=== PATIENT | female | born 1990 | race Two or more races ===

== ENCOUNTER 2016-11-03 22:16 | Emergency (ER) | payer OTHER ==
[2016-11-03 22:21] VITALS: BP 118/64; PULSE 98; TEMP 98; BMI 28.1
--- NOTE | 2016-11-03 23:16 | PDOC ---
History of Present Illness - History of Present Illness Initial Comments: 11/03/16 23:52 The patient is a 26 year old female, with a significant past medical history of scoliosis, who presents to the emergency department with frontal headache and cough for 4 days. She states her headache is worse when she wakes up in the morning. She states the headache is starts at the front of her head and radiates contralaterally. She reports using ibuprofen for her headaches, the last dose was taken about 2 hours ago. She also reports a nonproductive cough which aggravates her headache. She denies chest pain, shortness of breath, headache and dizziness. She denies fever, chills, nausea, vomit, diarrhea and constipation. She denies dysuria, frequency, urgency and hematuria. Allergies: NKDA <Annie Mcgovern - Last Filed: 11/03/16 23:52> <Gretchen Scott - Last Filed: 11/05/16 01:43> - General Chief Complaint: Headache Stated Complaint: HEADACHES Time Seen by Provider: 11/03/16 23:16 Past History <Annie Mcgovern - Last Filed: 11/03/16 23:52> - Past Medical History Asthma: Yes Cancer: No Cardiac Disorders: No Diabetes: No HTN: No Seizures: No Thyroid Disease: No - Immunization History Immunization Up to Date: Yes - Psycho/Social/Smoking Cessation Hx Anxiety: No Suicidal Ideation: No Smoking History: Current every day smoker Have you smoked in the past 12 months: Yes Number of Cigarettes Smoked Daily: 20 Information on smoking cessation initiated: No 'Breaking Loose' booklet given: 08/13/16 Hx Alcohol Use: No Drug/Substance Use Hx: No Substance Use Type: None Hx Substance Use Treatment: No <Gretchen Scott - Last Filed: 11/05/16 01:43> - Past Medical History Allergies/Adverse Reactions: Allergies Allergy/AdvReac Type Severity Reaction Status Date / Time No Known Drug Allergies Allergy Verified 11/03/16 22:20 Review of Systems - Review of Systems Able to Perform ROS?: Yes Comments:: 11/03/16 23:53 CONSTITUTIONAL: Absent: fever, chills, diaphoresis, generalized weakness, malaise, loss of appetite HEENT: Absent: rhinorrhea, nasal congestion, throat pain, throat swelling, difficulty swallowing, mouth swelling, ear pain, eye pain, visual Changes CARDIOVASCULAR: Absent: chest pain, syncope, palpitations, irregular heart rate, lightheadedness , peripheral edema RESPIRATORY: (+) cough, Absent: shortness of breath, dyspnea with exertion, orthopnea, wheezing, stridor, hemoptysis GASTROINTESTINAL: Absent: abdominal pain, abdominal distension, nausea, vomiting, diarrhea, constipation, melena, hematochezia GENITOURINARY: Absent: dysuria, frequency, urgency, hesitancy, hematuria, flank pain, genital pain MUSCULOSKELETAL: Absent: myalgia, arthralgia, joint swelling SKIN: Absent: rash, itching, pallor HEMATOLOGIC/IMMUNOLOGIC: Absent: easy bleeding, easy bruising, lymphadenopathy, frequent infections ENDOCRINE: Absent: unexplained weight gain, unexplained weight loss, heat intolerance, cold intolerance NEUROLOGIC: (+) headache, Absent: focal weakness or paresthesias, dizziness, unsteady gait , seizure, mental status changes, bladder or bowel incontinence PSYCHIATRIC: Absent: anxiety, depression, suicidal or homicidal ideation, hallucinations. <Annie Mcgovern - Last Filed: 11/03/16 23:52> *Physical Exam - Vital Signs Last Vital Signs Temp Pulse Resp BP Pulse Ox 98.0 F 98 H 18 118/64 98 11/03/16 22:18 11/03/16 22:18 11/03/16 22:18 11/03/16 22:18 11/03/16 22:18 - Physical Exam Comments: 11/03/16 23:53 GENERAL: Well developed, well nourished. Awake and alert. No acute distress. HEENT: Normocephalic, atraumatic. PERRLA, EOMI. No conjunctival pallor. Sclera are non- icteric. Moist mucous membranes. Oropharynx is clear. NECK: Supple. Full ROM. No JVD. Carotid pulses 2+ and symmetric, without bruits. No thyromegaly. No lymphadenopathy. CARDIOVASCULAR: Regular rate and rhythm. No murmurs, rubs, or gallops. Distal pulses are 2+ and symmetric. PULMONARY: No evidence of respiratory distress. Lungs clear to auscultation bilaterally. No wheezing, rales or rhonchi. ABDOMINAL: Soft. Non-tender. Non-distended. No rebound or guarding. No organomegaly. Normoactive bowel sounds. MUSCULOSKELETAL Normal range of motion at all joints. No bony deformities or tenderness. No CVA tenderness. EXTREMITIES: No cyanosis. No clubbing. No edema. No calf tenderness. SKIN: Warm and dry. Normal capillary refill. No rashes. No jaundice. NEUROLOGICAL: Alert, awake, appropriate. Cranial nerves 2-12 intact. Normoreflexic in the upper and lower extremities. Normal speech. Toes are down-going bilaterally. Gait is normal without ataxia. PSYCHIATRIC: Cooperative. Good eye contact. Appropriate mood and affect. <Annie Mcgovern - Last Filed: 11/03/16 23:52> - Vital Signs Last Vital Signs Temp Pulse Resp BP Pulse Ox 98.0 F 98 H 18 118/64 98 11/03/16 22:18 11/03/16 22:18 11/03/16 22:18 11/03/16 22:18 11/03/16 22:18 <Gretchen Scott - Last Filed: 11/05/16 01:43> ED Treatment Course - LABORATORY CBC & Chemistry Diagram: 11/04/16 00:13 11/04/16 00:13 <Gretchen Scott - Last Filed: 11/05/16 01:43> Medical Decision Making - Medical Decision Making 11/05/16 01:40 26 yo female p/w 4 day headache -she does not have a h/o migraines. Denies any fever,chills,nausea,vomiting, diplopia ,neck pain -she had a normal neuro exam with no focal deficits -pt received IFVfluids,toradol and steroids and her symptoms resolved and she requested to be discharged <Gretchen Scott - Last Filed: 11/05/16 01:43> *DC/Admit/Observation/Transfer - Attestations Scribe Attestion: 11/03/16 23:54 Documentation prepared by Annie Mcgovern, acting as medical office technologist for Gretchen Scott MD <Annie Mcgovern - Last Filed: 11/03/16 23:52> <Gretchen Scott - Last Filed: 11/05/16 01:43> Diagnosis at time of Disposition: Headache Qualifiers: Headache type: tension-type Headache chronicity pattern: unspecified pattern Intractability: not intractable Qualified Code(s): G44.209 - Tension-type headache, unspecified, not intractable - Discharge Dispostion Disposition: HOME Condition at time of disposition: Stable - Referrals Referrals: Deirdre Head MD [Primary Care Provider] - Kristen Rivas MD [Staff Physician] - - Patient Instructions Printed Discharge Instructions: DI for Headache Additional Instructions: -please take motrin or tylenol for headaches -if your headaches continue,please see a neurologist
[2016-11-03] MEDS ORDERED: METOCLOPRAMIDE HCL INJECTION 10 MG/2 ML VIAL IVPB ONE (23:19)
[2016-11-03] MEDS ORDERED: DEXAMETHASONE SOD PHOSPHATE 10 MG/1 ML VIAL IVPUSH ONE (23:27)
[2016-11-03] MEDS ORDERED: SODIUM CHLORIDE 1,000 ML IV STA (23:28)
[2016-11-03] MEDS ORDERED: KETOROLAC TROMETHAMINE 30 MG/1 ML VIAL IVPUSH ONE (23:33)
[2016-11-04 00:20] LABS: BASOPHIL 0.5 % (0-2.0); EOSINOPHIL 3.3 % (0-4.5); MCH 28.7 pg (25.7-33.7); MCHC 33.4 g/dl (32.0-36.0); MEAN CELL VOLUME 86.1 fl (80-96); MEAN PLT VOLUME 8.2 fl (7.5-11.1); PLATELET COUNT 217 K/MM3 (134-434); RDW 14.5 % (11.6-15.6); WHITE BLOOD COUNT 5.8 K/mm3 (4.0-10.0)
[2016-11-04] MEDS ORDERED: KETOROLAC TROMETHAMINE 30 MG/1 ML VIAL ONE (00:21)
[2016-11-04] MEDS ORDERED: DEXAMETHASONE SOD PHOSPHATE 10 MG/1 ML VIAL ONE (00:21)
[2016-11-04 00:48] LABS: ALBUMIN 3.5 g/dl (3.4-5.0); ALK PHOS 70 U/L (45-117); ANION GAP 9 (8-16); BILIRUBIN,TOTAL 0.3 mg/dL (0.2-1.0); CALCIUM 8.7 mg/dL (8.5-10.1); CO2 27 mmol/L (21-32); CREATININE 0.8 mg/dL (0.55-1.02); GLUCOSE,RANDOM 94 mg/dL (74-106); SGOT/AST 20 U/L (15-37); SGPT/ALT 32 U/L (12-78); TOT PROT 6.7 g/dl (6.4-8.2)
[2016-11-04] MEDS ORDERED: MAG HYDROX/AL HYDROX/SIMETH 30 ML UNIT-DOSE CUP PO ONE (01:03)
== END 2016-11-04 01:20 | disposition home or self-care (01) ==
LOC: SUPCPDRO 22:16 → JER 22:16
PROC: 3E0333Z Introduction of Anti-inflammatory into Peripheral Vein, Percutaneous Approach (ICD-10-PCS; principal; 2016-11-03)
DX: G44.209 Tension-type headache, unspecified, not intractable (principal); J45.909 Unspecified asthma, uncomplicated
CPT/HCPCS: 36415; 80053; 84703; 85025; 96374; 96375; 99282-25

== ENCOUNTER 2016-12-22 06:22 | Emergency (ER) | payer OTHER ==
[2016-12-22 06:46] VITALS: BMI 29.3
[2016-12-22 07:20] VITALS: PULSE 70
--- NOTE | 2016-12-22 07:26 | PDOC ---
History of Present Illness - General Chief Complaint: Chronic pain Stated Complaint: KNEE PAIN Time Seen by Provider: 12/22/16 06:33 History Source: Patient Exam Limitations: No Limitations - History of Present Illness Initial Comments: 12/22/16 07:21 26yo Female patient presents to ED c/o bilateral knee pain. Patient states right knee began giving her pain 3-4 weeks ago, follow by left knee couple days ago. Patient state while walking her right knee would give out and she would fall. Patient was seen in this ED and had CT-Scan done. Patient followed up with PCP and was told she had "disc" in her back. Patient was given Naproxen and referral to physical therapy; which she admits to only attending once. Patient was prescribed Gabapentin, which she states does not work. Patient has not seen orthopedic for her symptoms. LNMP: December 14. Occurred: reports: other (Ongoing) Severity: Yes: moderate Lower Extremity Pain Location: bilateral: knee Method of Injury: Yes: other Modifying Factors: improves with: pain medication Lower Ext. Injury Location - Specific Injury Location Knees: bilateral no evidence of injury, bilateral normal range of motion, bilateral non-tender, bilateral normal inspection Extremity Pain Location - Extremity Pain Location Extremity Pain Locations: bilateral: knee Past History - Travel Traveled outside of the country in the last 30 days: No Close contact w/someone who was outside of country & ill: No - Past Medical History Allergies/Adverse Reactions: Allergies Allergy/AdvReac Type Severity Reaction Status Date / Time No Known Drug Allergies Allergy Verified 12/22/16 06:42 Home Medications: Ambulatory Orders Naproxen [Naprosyn -] 500 mg PO PRN 12/22/16 Asthma: Yes Cancer: No Cardiac Disorders: No Diabetes: No HTN: No Seizures: No Thyroid Disease: No - Immunization History Immunization Up to Date: Yes - Psycho/Social/Smoking Cessation Hx Anxiety: No Suicidal Ideation: No Smoking History: Current every day smoker Have you smoked in the past 12 months: Yes Number of Cigarettes Smoked Daily: 20 Information on smoking cessation initiated: No 'Breaking Loose' booklet given: 08/13/16 Hx Alcohol Use: No Drug/Substance Use Hx: No Substance Use Type: None Hx Substance Use Treatment: No Review of Systems - Review of Systems Able to Perform ROS?: Yes Is the patient limited Telugu proficient: No Musculoskeletal: Yes: Joint Pain, Muscle Weakness All Other Systems: Reviewed and Negative *Physical Exam - Vital Signs Last Vital Signs Temp Pulse Resp BP Pulse Ox 98.8 F 70 20 107/62 99 12/22/16 07:20 12/22/16 07:20 12/22/16 06:44 12/22/16 07:20 12/22/16 07:20 - Physical Exam General Appearance: Yes: Nourished, Appropriately Dressed. No: Apparent Distress, Mild Distress, Moderate Distress, Severe Distress Respiratory/Chest: positive: Lungs Clear, Normal Breath Sounds. negative: Respiratory Distress, Accessory Muscle Use, Labored Respiration, Rapid RR, Crackles, Rales, Stridor, Wheezing Cardiovascular: positive: Regular Rhythm, Regular Rate. negative: Edema, JVD Gastrointestinal/Abdominal: positive: Normal Bowel Sounds, Soft. negative: Distended, Guarding, Rebound, Tenderness Musculoskeletal: positive: Normal Inspection. negative: CVA Tenderness Extremity: positive: Normal Capillary Refill, Normal Inspection, Normal Range of Motion. negative: Swelling, Calf Tenderness, Erythema, Inflammation Integumentary: positive: Normal Color, Dry, Warm Neurologic: positive: curtain stretcher II-XII NML intact, Fully Oriented, Alert, Normal Mood/ Affect, Normal Response, Motor Strength 5/5 ED Treatment Course - RADIOLOGY Radiology Studies Ordered: Category Date Time Status KNEE 4 POS-LEFT [RAD] Stat Radiology 12/22/16 07:20 Ordered KNEE 4 POS-RIGHT [RAD] Stat Radiology 12/22/16 07:20 Ordered
--- NOTE | 2016-12-22 07:35 | PDOC ---
Progress Note - Progress Note Progress Note: I have received report from CHERYLE Wolf regarding this patient. Pt's initial chief complaint: b/l knee pain Pt's work up completed prior to sign out: xrays and UA/hcg ordered Pt treatment given from prior staff: none Pt plan to be completed: awaiting UA/hcg, and xray of knees Dispo: Pending Medical Decision Making - Medical Decision Making A/P: 26 y/o afebrile female c/o b/l knee pain. Pt was initially worked up by CHERYLE Wolf and he believes the symptoms are stemming from a disc issue in her back. The patient refused physical therapy and states her leg pain is worsening. Awaiting results of UA/hcg and xrays. hcg - negative Xray IMPRESSION: No acute pathology. Gave the patient her results. Strongly encouraged her to f/u with the physical therapist and referred her to ortho as this is most likely coming from her low back. Pt instructed to return to the ER with any worsening or concerning symptoms. The patient verbalizes understanding of all instructions, has no further questions and is awaiting discharge. *DC/Admit/Observation/Transfer Diagnosis at time of Disposition: Pain in both knees Qualifiers: Chronicity: unspecified Qualified Code(s): M25.561 - Pain in right knee; M25.562 - Pain in left knee - Discharge Dispostion Disposition: HOME Condition at time of disposition: Good - Referrals Referrals: Andrew Mendes MD [Staff Physician] - Call tomorrow Alberto Mensah MD [Primary Care Provider] - Call tomorrow - Patient Instructions Printed Discharge Instructions: DI for Knee Pain, How To Perform RICE (Rest, Ice, Compress, Elevate), DI for Low Back Pain Additional Instructions: Discharge Instructions: -Your xrays were negative for any problems -Please take 600mg of Ibuprofen every 6 hours for pain with food; DO NOT TAKE NAPROXEN WHILE TAKING IBUPROFEN -Follow RICE instructions -Please restart physical therapy and continue as prescribed -Follow up with Dr. Mensah and Dr. Mendes this week -Return to the ER with any worsening or concerning symptoms
[2016-12-22 08:26] LABS: URINE APPEARANCE SLCLOUDY; URINE BLOOD NEGATIVE (NEGATIVE); URINE COLOR DKYELLOW; URINE GLUCOSE (UA) NEGATIVE (NEGATIVE); URINE KETONE TRACE (NEGATIVE); URINE NITRITE NEGATIVE (NEGATIVE); URINE PROTEIN NEGATIVE (NEGATIVE); URINE UROBILINOGEN 2.0 E.U/dl E.U./dl (0.2-1.0)
[2016-12-22 08:33] LABS: URINE LEUK ESTERASE TRACE (NEGATIVE)
[2016-12-22 09:01] LABS: URINE BACTERIA RARE /hpf (NONE SEEN); URINE MUCUS MANY; URINE RBC 2 /hpf (0-3); URINE WBC 4 /hpf (3-5)
[2016-12-22 09:54] VITALS: BP 104/64; TEMP 98
== END 2016-12-22 09:59 | disposition home or self-care (01) ==
LOC: JER 06:22
DX: M25.562 Pain in left knee (principal); M25.561 Pain in right knee
CPT/HCPCS: 73564-TC-LT; 73564-TC-RT; 81003; 81015; 84703; 99282-25

== ENCOUNTER 2017-02-02 21:56 | Emergency (ER) | payer OTHER ==
[2017-02-02 22:16] VITALS: BP 114/59; PULSE 86; TEMP 97.7; BMI 28.1
--- NOTE | 2017-02-02 22:37 | PDOC ---
History of Present Illness - General History Source: Patient Exam Limitations: No Limitations - History of Present Illness Initial Comments: 02/02/17 22:51 The patient is a 26 year old female with a significant past medical history of scoliosis, who presents to the ER with generalized weakness and left sided back pain. She states she feels like there is a big rock on the left side of the back while supine. Patient also reports that she feels like her left rib and hip are closer to each other than the right side. Patient states she has been taking Motrin, 500 mg Methocarbamol, and Naproxen for pain. 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 <Katya Amos - Last Filed: 02/02/17 22:50> <Annia Ding - Last Filed: 02/03/17 01:44> - General Chief Complaint: Pain Stated Complaint: WEAKNESS Time Seen by Provider: 02/02/17 22:37 Past History <Katya Amos - Last Filed: 02/02/17 22:50> - Past Medical History Asthma: Yes Cancer: No Cardiac Disorders: No Diabetes: No HTN: No Seizures: No Thyroid Disease: No Other medical history: Scoliosis - Immunization History Immunization Up to Date: Yes - Psycho/Social/Smoking Cessation Hx Anxiety: No Suicidal Ideation: No Smoking History: Never smoked Have you smoked in the past 12 months: Yes Number of Cigarettes Smoked Daily: 20 Information on smoking cessation initiated: No 'Breaking Loose' booklet given: 08/13/16 Hx Alcohol Use: No Drug/Substance Use Hx: No Substance Use Type: None Hx Substance Use Treatment: No <Annia Ding - Last Filed: 02/03/17 01:44> - Past Medical History Allergies/Adverse Reactions: Allergies Allergy/AdvReac Type Severity Reaction Status Date / Time No Known Drug Allergies Allergy Verified 02/02/17 22:11 Home Medications: Ambulatory Orders Naproxen [Naprosyn -] 500 mg PO PRN 12/22/16 Methocarbamol [Robaxin -] 2 tab PO BID #60 tablet 02/02/17 Review of Systems - Review of Systems Able to Perform ROS?: Yes Comments:: 02/02/17 22:51 CONSTITUTIONAL: Present: (+) generalized weakness Absent: fever, no chills, no fatigue EYES: Absent: visual changes ENT: Absent: ear pain, no sore throat CARDIOVASCULAR: Absent: chest pain, no palpitations RESPIRATORY: Absent: cough, no SOB GI: Absent: abdominal pain, no nausea, no vomiting, no constipation, no diarrhea GENITOURINARY: Absent: dysuria, no frequency, no hematuria MUSCULOSKELETAL: Present: (+) left back pain Absent: no arthralgia, no myalgia SKIN: Absent: rash NEURO: Absent: headache <KsjackKatya - Last Filed: 02/02/17 22:50> *Physical Exam - Vital Signs Last Vital Signs Temp Pulse Resp BP Pulse Ox 97.7 F 86 19 114/59 99 02/02/17 22:11 02/02/17 22:11 02/02/17 22:11 02/02/17 22:11 02/02/17 22:11 - Physical Exam Comments: 02/02/17 22:52 GENERAL: Well-appearing, well-nourished. No apparent distress. HEENT: Normocephalic, atraumatic. PERRL, EOM intact. CARDIOVASCULAR: Normal S1, S2. Regular rate and rhythm. PULMONARY: Clear to auscultation bilaterally. ABDOMEN: Soft, non-distended, non-tender. EXTREMITIES: Normal ROM in all four extremities. No gross deformities. SKIN: Warm, dry. No rash NEUROLOGICAL: No focal neurological deficits. <Katya Amos - Last Filed: 02/02/17 22:50> - Vital Signs Last Vital Signs Temp Pulse Resp BP Pulse Ox 97.7 F 86 19 114/59 99 02/02/17 22:11 02/02/17 22:11 02/02/17 22:11 02/02/17 22:11 02/02/17 22:11 <Annia Ding - Last Filed: 02/03/17 01:44> Medical Decision Making - Medical Decision Making 02/03/17 01:39 Pt comes with back pain. SHe has a hx of scoliosis. She hasn't taken any pain meds. She also wants to make sure that the pain isn't a UTI or , as her menstrual cycle is late. UA is normal and her HCG is negative. Pt will be discharged home with robaxin. Pt was given one percocet in the ER and she is feeling better. She is requesting more percocet, but I discussed that I will not give it to her, as scoliosis is a chronic issue for her and percocets are addictive. Follow with PMD <Annia Ding - Last Filed: 02/03/17 01:44> *DC/Admit/Observation/Transfer - Attestations Scribe Attestion: 02/02/17 22:52 Documentation prepared by Katya Amos, acting as special forces medical sergeant for Annia Ding MD. <Katya Amos - Last Filed: 02/02/17 22:50> - Discharge Dispostion Admit: No <Annia Ding - Last Filed: 02/03/17 01:44> Diagnosis at time of Disposition: Back pain, Scoliosis, Muscle strain - Discharge Dispostion Disposition: HOME Condition at time of disposition: Stable - Prescriptions Prescriptions: Methocarbamol [Robaxin -] 2 tab PO BID #60 tablet - Referrals Referrals: Deirdre Head MD [Primary Care Provider] - - Patient Instructions Printed Discharge Instructions: DI for Muscle Strain, Scoliosis-Adult
[2017-02-02] MEDS ORDERED: METHOCARBAMOL 500 MG TABLET PO ONE (22:47)
[2017-02-02] MEDS ORDERED: OXYCODONE/APAP 5/325MG COMBO TABLET PO ONE (22:47)
[2017-02-02] MEDS ORDERED: OXYCODONE/APAP 5/325MG COMBO TABLET ONE (22:52)
[2017-02-02 22:57] LABS: URINE APPEARANCE CLEAR; URINE BILIRUBIN NEGATIVE (NEGATIVE); URINE BLOOD NEGATIVE (NEGATIVE); URINE COLOR YELLOW; URINE GLUCOSE (UA) NEGATIVE (NEGATIVE); URINE KETONE NEGATIVE (NEGATIVE); URINE LEUK ESTERASE NEGATIVE (NEGATIVE); URINE NITRITE NEGATIVE (NEGATIVE); URINE PROTEIN NEGATIVE (NEGATIVE); URINE UROBILINOGEN 2.0 E.U/dl E.U./dl (0.2-1.0)
[2017-02-02] MEDS ORDERED: METHOCARBAMOL 500 MG TABLET ONE (23:39)
== END 2017-02-02 23:49 | disposition home or self-care (01) ==
LOC: JER 21:56
DX: M41.9 Scoliosis, unspecified (principal); S39.012A Strain of muscle, fascia and tendon of lower back, initial encounter; X58.XXXA Exposure to other specified factors, initial encounter; Y93.9 Activity, unspecified
CPT/HCPCS: 81003; 84703; 99282-25

== ENCOUNTER 2017-03-15 23:29 | Emergency (ER) | payer OTHER ==
[2017-03-15 23:42] VITALS: BP 124/68; PULSE 93; TEMP 98.2; BMI 29.1
--- NOTE | 2017-03-16 00:19 | PDOC ---
History of Present Illness - General History Source: Patient, Old Records Exam Limitations: No Limitations <Linda Aaron - Last Filed: 03/16/17 00:16> - General History Source: Patient Exam Limitations: No Limitations - History of Present Illness Initial Comments: 03/16/17 00:21 The patient is a 26 year old female, with a significant past medical history of scoliosis, who presents to the ED with one week of lower back pain. She states that her pain is intermittent and sharp in sensation. Pt reports that she has been experiencing similar back pain since June. In June, the pt had a CT scan done of her lower back that was significant for bulging discs. Pt has visited her PCP for the issue and was referred to a physical therapist. She reports that she does take 500 mg of naproxen twice a day with little relief of her symptoms. What made her come into the ED today is that her pain progressively worsened and has now radiated to both hips. She reports daily strenuous activity (she is constantly cleaning her home). This pain is also accompanied by constipation. Pt denies any recent changes in her diet and does report that she does not drink much water. Last menstrual period was on February 18. The patient denies any fever, chills, nausea, vomiting, diarrhea, or abdominal pain. She denies any chest pain or shortness of breath. PCP: Dr. Head <Anamaria Escobar - Last Filed: 03/16/17 00:23> - General Chief Complaint: Constipation Stated Complaint: LOWER BACK PAIN, CONSTIPATION Time Seen by Provider: 03/16/17 00:01 Past History - Past Medical History Asthma: Yes Cancer: No Cardiac Disorders: No Diabetes: No HTN: No Seizures: No Thyroid Disease: No Other medical history: scoliosis, bulging disc - Immunization History Immunization Up to Date: Yes - Psycho/Social/Smoking Cessation Hx Anxiety: No Suicidal Ideation: No Smoking History: Never smoked Have you smoked in the past 12 months: Yes Number of Cigarettes Smoked Daily: 20 Information on smoking cessation initiated: No 'Breaking Loose' booklet given: 08/13/16 Hx Alcohol Use: No Drug/Substance Use Hx: No Substance Use Type: None Hx Substance Use Treatment: No <Linda Aaron - Last Filed: 03/16/17 00:16> <Anamaria Escobar - Last Filed: 03/16/17 00:23> - Past Medical History Allergies/Adverse Reactions: Allergies Allergy/AdvReac Type Severity Reaction Status Date / Time No Known Drug Allergies Allergy Verified 03/15/17 23:42 Home Medications: Ambulatory Orders Naproxen [Naprosyn -] 500 mg PO PRN 12/22/16 Methocarbamol [Robaxin -] 2 tab PO BID #60 tablet 02/02/17 Review of Systems - Review of Systems Able to Perform ROS?: Yes Comments:: 03/16/17 00:22 CONSTITUTIONAL: Absent: fever, chills, diaphoresis, generalized weakness, malaise, loss of appetite HEENT: Absent: rhinorrhea, nasal congestion, throat pain, throat swelling, difficulty swallowing, mouth swelling, ear pain, eye pain, visual Changes CARDIOVASCULAR: Absent: chest pain, syncope, palpitations, irregular heart rate, lightheadedness , peripheral edema RESPIRATORY: Absent: cough, shortness of breath, dyspnea with exertion, orthopnea, wheezing, stridor, hemoptysis GASTROINTESTINAL: Present: constipation Absent: abdominal pain, abdominal distension, nausea, vomiting, diarrhea, melena, hematochezia GENITOURINARY: Absent: dysuria, frequency, urgency, hesitancy, hematuria, flank pain, genital pain MUSCULOSKELETAL: Present: back pain Absent: arthralgia, joint swelling SKIN: Absent: rash, itching, pallor HEMATOLOGIC/IMMUNOLOGIC: Absent: easy bleeding, easy bruising, lymphadenopathy, frequent infections ENDOCRINE: Absent: unexplained weight gain, unexplained weight loss, heat intolerance, cold intolerance NEUROLOGIC: Absent: headache, focal weakness or paresthesias, dizziness, unsteady gait, seizure, mental status changes, bladder or bowel incontinence PSYCHIATRIC: Absent: anxiety, depression, suicidal or homicidal ideation, hallucinations. <Anamaria Escobar - Last Filed: 03/16/17 00:23> *Physical Exam - Vital Signs Last Vital Signs Temp Pulse Resp BP Pulse Ox 98.2 F 93 H 18 124/68 99 03/15/17 23:39 03/15/17 23:39 03/15/17 23:39 03/15/17 23:39 03/15/17 23:39 <Linda Aaron - Last Filed: 03/16/17 00:16> - Vital Signs Last Vital Signs Temp Pulse Resp BP Pulse Ox 98.2 F 93 H 18 124/68 99 03/15/17 23:39 03/15/17 23:39 03/15/17 23:39 03/15/17 23:39 03/15/17 23:39 <Anamaria Escobar - Last Filed: 03/16/17 00:23> Medical Decision Making - Medical Decision Making 03/16/17 00:16 26-year-old female with history of chronic lower back pain presents the emergency department with lower back pain times one week unrelieved with over the counter naproxen; 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 Plan: 1. NSAIDs as needed for pain 2. Activity as tolerated 3. I will refer the patient back to her primary care physician who can substantively get an outpatient MRI and continue physical therapy 4. Return to the emergency department if symptoms persist, worsen, or new symptoms arise. <Linda Aaron - Last Filed: 03/16/17 00:16> *DC/Admit/Observation/Transfer - Discharge Dispostion Admit: No - Attestations Physician Attestion: 03/16/17 00:18 I, Dr. Linda Aaron, attest that the scribes documentation that appears above has been prepared under my direction and personally reviewed by me in its entirety. I confirmed that the note above accurately reflects all work, treatment, procedures, and medical decision-making performed by me. <Linda Aaron - Last Filed: 03/16/17 00:16> - Attestations Scribe Attestion: 03/16/17 00:23 Documentation prepared by Anamaria Escobar, acting as medical billing instructor for Linda Aaron MD. <Anamaria Escobar - Last Filed: 03/16/17 00:23> Diagnosis at time of Disposition: Back pain - Discharge Dispostion Disposition: HOME Condition at time of disposition: Stable - Referrals Referrals: Deirdre Head MD [Primary Care Provider] - - Patient Instructions Printed Discharge Instructions: DI for Low Back Pain Additional Instructions: For your constipation you may increase the amount of fiber in your diet and drink lots of water to maintain hydration. Activity as tolerated to minimize the lower back pain. You may continue to take the Naprosyn 500 mg twice daily as needed for your pain. Please follow-up with your primary care physician and return to the emergency department if your symptoms persist, worsen, or new symptoms arise.
[2017-03-16] MEDS ORDERED: IBUPROFEN 400 MG TABLET (FP) PO ONE ×2 (00:53→01:06)
== END 2017-03-16 01:00 | disposition home or self-care (01) ==
LOC: JER 23:29
DX: M54.5 Low back pain (principal); M41.9 Scoliosis, unspecified
CPT/HCPCS: 99283-25

== ENCOUNTER → 2017-03-25 | Emergency (ER) | payer OTHER ==
[2017-03-25 03:42] VITALS: BP 118/89; PULSE 76; TEMP 98.5; BMI 29.0
--- NOTE | 2017-03-25 04:14 | PDOC ---
History of Present Illness - General Chief Complaint: Abscess Boil Stated Complaint: RASH Time Seen by Provider: 03/25/17 03:38 History Source: Patient Exam Limitations: No Limitations - History of Present Illness Initial Comments: 03/25/17 04:09 This is a 26yo woman with PMH recurring abscesses who present today with abscess to right lateral trunk. She also has an abscess to right gluteal fold. Pt has been on antibiotic therapy frequently for same complaints. Severity: Yes: mild Location: reports: torso Past History - Past Medical History Allergies/Adverse Reactions: Allergies Allergy/AdvReac Type Severity Reaction Status Date / Time No Known Drug Allergies Allergy Verified 03/25/17 03:41 Home Medications: Ambulatory Orders Naproxen [Naprosyn -] 500 mg PO PRN 12/22/16 Methocarbamol [Robaxin -] 2 tab PO BID #60 tablet 02/02/17 Cephalexin Monohydrate [Keflex -] 500 mg PO Q6H #40 capsule 03/25/17 Asthma: Yes Cancer: No Cardiac Disorders: No Diabetes: No HTN: No Seizures: No Thyroid Disease: No - Immunization History Immunization Up to Date: Yes - Psycho/Social/Smoking Cessation Hx Anxiety: No Suicidal Ideation: No Smoking History: Never smoked Have you smoked in the past 12 months: Yes Number of Cigarettes Smoked Daily: 20 Information on smoking cessation initiated: No 'Breaking Loose' booklet given: 08/13/16 Hx Alcohol Use: No Drug/Substance Use Hx: No Substance Use Type: None Hx Substance Use Treatment: No Review of Systems - Review of Systems Able to Perform ROS?: Yes Is the patient limited Tajik proficient: No Constitutional: No: Chills, Fever HEENTM: No: Symptoms Reported Respiratory: No: Symptoms reported Cardiac (ROS): No: Symptoms Reported ABD/GI: No: Symptoms Reported : No: Symptoms Reported Musculoskeletal: No: Symptoms Reported Integumentary: Yes: Lesions (to right gluteal fold and right lateral torso) Neurological: No: Symptoms reported *Physical Exam - Vital Signs Last Vital Signs Temp Pulse Resp BP Pulse Ox 98.5 F 76 19 118/89 99 03/25/17 03:39 03/25/17 03:39 03/25/17 03:39 03/25/17 03:39 03/25/17 03:39 Medical Decision Making - Medical Decision Making 03/25/17 04:14 A/P: This is a 26yo woman with PMH recurring abscesses who present today with abscess to right lateral trunk. She also has an abscess to right gluteal fold. Pt has been on antibiotic therapy frequently for same complaints. Soft, erythematous non-fluctuant 2cm circular mass to right lateral torso. Self draining<0.25cm pustule to right gluteal fold. Pus expressed from gluteal lesion. Multiple discolorations to buttocks noted. - ceftin 500mg po bid - discharge - f/u with derm as outpatient *DC/Admit/Observation/Transfer Diagnosis at time of Disposition: Abscess - Discharge Dispostion Disposition: HOME Condition at time of disposition: Stable Admit: No - Prescriptions Prescriptions: Cephalexin Monohydrate [Keflex -] 500 mg PO Q6H #40 capsule - Patient Instructions Printed Discharge Instructions: DI for Skin Abscess Additional Instructions: Call Dr Akosua Oh (dog day care attendant) for appointment. Maintain proper hygiene. Eat a well balanced diet. Drink plenty of fluids. Return to ER for fevers, chills, increased pain or any other concerns.
== END | disposition home or self-care (01) ==
LOC: JER 02:56 → SUPCPDRO 02:56
DX: L02.211 Cutaneous abscess of abdominal wall (principal); L02.31 Cutaneous abscess of buttock
CPT/HCPCS: 99281-25

== ENCOUNTER 2017-05-26 20:07 | Emergency (ER) | payer OTHER ==
[2017-05-26 20:16] VITALS: BP 117/62; PULSE 83; TEMP 98.1; BMI 28.1
--- NOTE | 2017-05-26 23:47 | PDOC ---
History of Present Illness - General Chief Complaint: Ear Problem Stated Complaint: PAIN Time Seen by Provider: 05/26/17 22:57 - History of Present Illness Initial Comments: 05/26/17 23:44 CHIEF COMPLAINT: pain HISTORY OF PRESENT ILLNESS: 27 yo F with no significant PMH presents to ED with pain to face and teeth x 1 week, with new onset pain to TERAN, throat, and ears x 2 days. Patient denies any fever, chills but does report nausea and vomiting from the shooting pain that she has been feeling. Patient states the pain " comes and goes, and will suddenly shoot across all of my teeth, or down my throat, or up to my head." At this time she feels better but states "I know it will come back in a little bit." PAST MEDICAL HISTORY: Denies past medical history FAMILY HISTORY: Denies SOCIAL HISTORY: Denies tobacco, alcohol, illicit drug use. SURGICAL HISTORY: Denies ALLERGIES: No known drug allergies REVIEW OF SYSTEMS General/Constitutional: Denies fever or chills. Denies weakness, weight change. HEENT: Intermittent, sporadic pain to teeth, face, throat, head, and ears. Cardiovascular: Denies chest pain or shortness of breath. Respiratory: Denies cough, wheezing, or hemoptysis. Gastrointestinal: N/V x 1 day. Denies diarrhea or constipation. Denies rectal bleeding. Genitourinary: Denies dysuria, frequency, or change in urination. Musculoskeletal: Denies joint or muscle swelling or pain. Denies neck or back pain. Skin and breasts: Denies rash or easy bruising. Neurologic: Headache. Denies vertigo, loss of consciousness, or loss of sensation. PHYSICAL EXAM General Appearance: Well-appearing, appropriately dressed. No apparent distress , no intoxication. HEENT: EOMI, PERRLA, normal ENT inspection, normal voice, TMs normal, pharynx normal. No conjunctival pallor. No photophobia, scleral icterus. Neck: Supple. Trachea midline. No tenderness, rigidity, carotid bruit, stridor , lymphadenopathy, or thyromegaly. Respiratory/Chest: Lungs CTAB. No shortness of breath, chest tenderness, respiratory distress, accessory muscle use. No crackles, rales, rhonchi, stridor , wheezing, dullness Cardiovascular: RRR. S1, S2. No JVD, murmur, bradycardia, tachycardia. Vascular Pulses: Dorsalis-Pedis (R): 2+, Dorsalis-Pedis (L): 2+ Gastrointestinal/Abdominal: Normal bowel sounds. Abdomen soft, non-distended. No tenderness or rebound tenderness. No organomegaly, pulsatile mass, guarding , hernia, hepatomegaly, splenomegaly. Lymphatic: No adenopathy, tenderness. Musculoskeletal/Extremities: Normal inspection. FROM of all extremities, normal capillary refill. Pelvis Stable. No CVA tenderness. No tenderness to extremities, pedal edema, swelling, erythema or deformity. Integumentary: Appropriate color, dry, warm. No cyanosis, erythema, jaundice or rash Neurologic: roller staker II-XII intact. Fully oriented, alert. Appropriate mood/affect. Motor strength 5/5. No appreciable EOM palsy, facial droop or sensory deficit. Past History - Past Medical History Allergies/Adverse Reactions: Allergies Allergy/AdvReac Type Severity Reaction Status Date / Time No Known Drug Allergies Allergy Verified 05/26/17 20:13 Home Medications: Ambulatory Orders Diclofenac Sodium [Voltaren -] 75 mg PO BID #14 tablet. 05/26/17 Asthma: Yes Cancer: No Cardiac Disorders: No Diabetes: No HTN: No Seizures: No Thyroid Disease: No - Immunization History Immunization Up to Date: Yes - Suicide/Smoking/Psychosocial Hx Smoking History: Never smoked Have you smoked in the past 12 months: Yes Number of Cigarettes Smoked Daily: 20 Information on smoking cessation initiated: No 'Breaking Loose' booklet given: 08/13/16 Hx Alcohol Use: No Drug/Substance Use Hx: No Substance Use Type: None Hx Substance Use Treatment: No *Physical Exam - Vital Signs Last Vital Signs Temp Pulse Resp BP Pulse Ox 98.1 F 83 18 117/62 99 05/26/17 20:14 05/26/17 20:14 05/26/17 20:14 05/26/17 20:14 05/26/17 20:14 Medical Decision Making - Medical Decision Making 05/26/17 23:47 27 yo F with no significant PMH presents to ED with pain to face and teeth x 1 week, with new onset pain to TERAN, throat, and ears x 2 days. Clinical presentation consistent with trigeminal neuralgia. Will discharge with NSAIDS and close f/u with neurology. *DC/Admit/Observation/Transfer Diagnosis at time of Disposition: Trigeminal neuralgia - Discharge Dispostion Disposition: HOME Condition at time of disposition: Stable Admit: No - Prescriptions Prescriptions: Diclofenac Sodium [Voltaren -] 75 mg PO BID #14 tablet.dr - Referrals Referrals: Rafael Hay MD [Staff Physician] - - Patient Instructions Printed Discharge Instructions: DI for Trigeminal Neuralgia Additional Instructions: You MUST follow up with a neurologist THIS WEEK for further monitoring and treatment of your symptoms. If you develop any new or worsening pain, change in vision, weakness, dizziness, difficulty speaking, swallowing, or walking, or any other concerning symptoms, please return to the ER.
== END 2017-05-26 23:58 | disposition home or self-care (01) ==
LOC: JERFT 20:07
DX: G50.0 Trigeminal neuralgia (principal); J45.909 Unspecified asthma, uncomplicated; Z87.891 Personal history of nicotine dependence
CPT/HCPCS: 99281-25

== ENCOUNTER 2017-06-20 01:03 | Emergency (ER) | payer OTHER ==
[2017-06-20 01:25] VITALS: BP 126/64; PULSE 98; TEMP 97.8; BMI 29.4
--- NOTE | 2017-06-20 01:48 | PDOC ---
History of Present Illness - General Chief Complaint: Pain Stated Complaint: PAIN/SWELLING JAW Time Seen by Provider: 06/20/17 01:20 History Source: Patient Exam Limitations: No Limitations - History of Present Illness Initial Comments: 06/20/17 01:43 The patient is a 27F with no PMH who presents to the ED with complaints of jaw pain. The patient states that she get a sharp jaw pain that starts just superior of the angle of her mandible and radiates down her jaw. The patient was seen on 05/26 and was told to follow up with a neurologist which she did not do. She has an appointment with her PCP on Friday. Past History - Past Medical History Allergies/Adverse Reactions: Allergies Allergy/AdvReac Type Severity Reaction Status Date / Time No Known Drug Allergies Allergy Verified 05/26/17 20:13 Home Medications: Ambulatory Orders Diclofenac Sodium [Voltaren -] 75 mg PO BID #14 tablet. 05/26/17 Asthma: Yes Cancer: No Cardiac Disorders: No Diabetes: No HTN: No Seizures: No Thyroid Disease: No - Immunization History Immunization Up to Date: Yes - Suicide/Smoking/Psychosocial Hx Smoking History: Former smoker Have you smoked in the past 12 months: Yes Number of Cigarettes Smoked Daily: 20 If you are a former smoker, when did you quit?: 3 WEEKS AGO Information on smoking cessation initiated: No 'Breaking Loose' booklet given: 08/13/16 Hx Alcohol Use: No Drug/Substance Use Hx: No Substance Use Type: None Hx Substance Use Treatment: No Review of Systems - Review of Systems Able to Perform ROS?: Yes Is the patient limited Chinese proficient: No Constitutional: No: Chills, Diaphoresis, Fever HEENTM: Yes: Mouth Pain. No: Eye Pain, Nose Pain, Hearing Loss, Throat Pain, Dental Problems Respiratory: No: Cough, Shortness of Breath Cardiac (ROS): No: Chest Pain, Palpitations ABD/GI: No: Nausea, Vomiting : No: Burning, Dysuria Musculoskeletal: No: Back Pain, Muscle Pain Integumentary: No: Bruising, Dryness, Rash Neurological: No: Headache, Numbness, Tingling, Weakness *Physical Exam - Vital Signs Last Vital Signs Temp Pulse Resp BP Pulse Ox 97.8 F 98 H 20 126/64 99 06/20/17 01:17 06/20/17 01:17 06/20/17 01:17 06/20/17 01:17 06/20/17 01:17 - Physical Exam General Appearance: Yes: Nourished, Appropriately Dressed HEENT: positive: Normal Voice, Hearing Grossly Normal, Other (No tenderness over TMJ or with mandible extension). negative: Tonsillar Exudate, Tonsillar Erythema, Nasal Congestion, Sinus Tenderness, Hearing Decreased, Lesions Respiratory/Chest: positive: Lungs Clear, Normal Breath Sounds. negative: Chest Tender Cardiovascular: positive: Regular Rhythm, Regular Rate, S1, S2. negative: Diastolic Murmur, Systolic Murmur Gastrointestinal/Abdominal: positive: Flat, Soft. negative: Tender Musculoskeletal: negative: CVA Tenderness (R), CVA Tenderness (L) Extremity: positive: Normal Inspection, Normal Range of Motion. negative: Coldness, Swelling, Calf Tenderness Integumentary: positive: Dry, Warm. negative: Clammy, Diaphoresis Neurologic: positive: Fully Oriented, Alert Medical Decision Making - Medical Decision Making 06/20/17 01:48 The patient is a healthy 27F who presents to the ED with jaw pain, likely secondary to trigeminal neuralgia. The patient's pain is in the distribution of V3. I informed her to follow up with her PCP, neurologist, and dentist. Patient agrees and is ready for d/c. *DC/Admit/Observation/Transfer Diagnosis at time of Disposition: Trigeminal neuralgia, Jaw pain - Discharge Dispostion Disposition: HOME Condition at time of disposition: Stable Admit: No - Referrals Referrals: Nitish Marsh MD [Staff Physician] - - Patient Instructions Printed Discharge Instructions: Trigeminal Neuralgia, DI for Trigeminal Neuralgia Additional Instructions: Please return to the ER if symptoms progress, worsen, or new symptoms arise. Please follow up with your primary care doctor, your neurologist, and your dentist. Print Language: MOHAWK
--- NOTE | 2017-06-20 02:00 | PDOC ---
Attending Attestation - Resident Resident Name: Stoney Allen - ED Attending Attestation I have performed the following: I have examined & evaluated the patient, The case was reviewed & discussed with the resident, I agree w/resident's findings & plan, Exceptions are as noted - HPI HPI: 06/20/17 01:55 bilateral facial/ mouth pain for several days. Seen here and referred to Neurology but has not gone. Denies any other complaints - Physicial Exam PE: 06/20/17 02:00 *Physical Exam General Appearance: Yes: Appropriately Dressed. No: Apparent Distress, Intoxicated HEENT: positive: EOMI, YOHANNES, Normal ENT Inspection, Normal Voice, TMs Normal, Pharynx Normal. negative: Pale Conjunctivae, Photophobia, Scleral Icterus (R), Scleral Icterus (L) Neck: positive: Trachea midline, Normal Thyroid, Supple. negative: Tender, Rigid, Carotid bruit, Stridor, Lymphadenopathy (R), Lymphadenopathy (L), Thyromegaly Respiratory/Chest: positive: Lungs Clear, Normal Breath Sounds. negative: Chest Tender, Respiratory Distress, Accessory Muscle Use, Labored Respiration, RES, Crackles, Rales, Rhonchi, Stridor, Wheezing, Dullness Cardiovascular: positive: Regular Rhythm, Regular Rate, S1, S2. negative: Edema , JVD, Murmur, Bradycardia, Tachycardia Vascular Pulses: Dorsalis-Pedis (R): 2+, Doralis-Pedis (L): 2+ Gastrointestinal/Abdominal: positive: Normal Bowel Sounds, Flat, Soft. negative : Tender, Organomegaly, Pulsatile Mass, Increased Bowel Sounds, Decreased BS, Distended, Guarding, Rebound, Hernia, Hepatomegaly, Spleenomegaly Lymphatic: negative: Adenopathy, Tenderness Musculoskeletal: positive: Normal Inspection. negative: CVA Tenderness, Decreased Range of Motion Extremity: positive: Normal Capillary Refill, Normal Inspection, Normal Range of Motion, Pelvis Stable. negative: Tender, Pedal Edema, Swelling, Erythema Integumentary: positive: Normal Color, Dry, Warm. 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 negative: EOM Palsy, Facial Droop, Sensory Deficit - Medical Decision Making 06/20/17 02:00 pt advised to go to neurology and see dentist for complete oral evaluation.
== END 2017-06-20 02:31 | disposition home or self-care (01) ==
LOC: JER 01:03
DX: G50.0 Trigeminal neuralgia (principal)
CPT/HCPCS: 99282-25

== ENCOUNTER 2017-07-02 04:53 | Emergency (ER) | payer OTHER ==
[2017-07-02 05:55] VITALS: TEMP 98.7; BMI 29.0
[2017-07-02] MEDS ORDERED: ASPIRIN 81 MG CHEWABLE TABLETS PO ONE (06:01)
--- NOTE | 2017-07-02 06:06 | PDOC ---
History of Present Illness - General Chief Complaint: Shortness of Breath Stated Complaint: SOB,PALPITATIONS Time Seen by Provider: 07/02/17 05:55 History Source: Patient - History of Present Illness Initial Comments: 07/02/17 06:03 27-year-old female complaining of palpitations and shortness of breath with chest pain, since last night. Patient denies diaphoresis, nausea, vomiting, dizziness patient feels when the palpitation episodes occurs her heart rate goes up over 100. Patient recently quit smoking, and has an IUD. Patient reports smoking hookah frequently. denies stressors, or drug/ caffeine intake 07/02/17 06:05 Past History - Past Medical History Allergies/Adverse Reactions: Allergies Allergy/AdvReac Type Severity Reaction Status Date / Time No Known Drug Allergies Allergy Verified 05/26/17 20:13 Home Medications: Ambulatory Orders Diclofenac Sodium [Voltaren -] 75 mg PO BID #14 tablet. 05/26/17 Anemia: No Asthma: Yes Cancer: No Cardiac Disorders: No CVA: No COPD: No DVT: No Dementia: No Diabetes: No Dialysis: No GI Disorders: No Disorders: No HTN: No Hypercholesterolemia: No Kidney Stones: No Liver Disease: No Psychiatric Problems: No Seizures: No Thyroid Disease: No Lung CA: No - Immunization History Immunization Up to Date: Yes - Suicide/Smoking/Psychosocial Hx Smoking History: Unknown if ever smoked Have you smoked in the past 12 months: No Number of Cigarettes Smoked Daily: 20 If you are a former smoker, when did you quit?: 3 WEEKS AGO Information on smoking cessation initiated: No 'Breaking Loose' booklet given: 08/13/16 Hx Alcohol Use: No Drug/Substance Use Hx: No Substance Use Type: None Hx Substance Use Treatment: No Review of Systems - Review of Systems Able to Perform ROS?: Yes Is the patient limited Micronesian proficient: No Respiratory: Yes: SOB at Rest Cardiac (ROS): Yes: Chest Pain, Palpitations *Physical Exam - Vital Signs Last Vital Signs Temp Pulse Resp BP Pulse Ox 98.7 F 53 L 18 111/53 99 07/02/17 05:52 07/02/17 05:52 07/02/17 05:52 07/02/17 05:52 07/02/17 05:52 - Physical Exam General Appearance: Yes: Appropriately Dressed Respiratory/Chest: positive: Lungs Clear, Normal Breath Sounds Cardiovascular: positive: Regular Rhythm, Regular Rate, S1, S2 Gastrointestinal/Abdominal: positive: Normal Bowel Sounds, Soft Extremity: positive: Normal Capillary Refill, Normal Inspection, Normal Range of Motion Integumentary: positive: Normal Color, Dry, Warm Neurologic: positive: Fully Oriented, Alert, Normal Mood/Affect Heart Score/ECG Review - ECG Intrepretation Rhythm: Regular Rhythm Comment:: 07/02/17 06:47 NSR WITH SINUS ARRYTHMIA : 66BPM ED Treatment Course - LABORATORY CBC & Chemistry Diagram: 07/02/17 06:29 07/02/17 06:29 Progress Note - Progress Note Progress Note: a: PALPITATIONS; CHEST PAIN p; CBC CMP D-DIMER SERUM CHEST XRAY *DC/Admit/Observation/Transfer Diagnosis at time of Disposition: Palpitations, Chest pain at rest - Referrals Referrals: Ace Chavez MD [Primary Care Provider] -
--- NOTE | 2017-07-02 06:36 | PDOC ---
*Physical Exam - Vital Signs Last Vital Signs Temp Pulse Resp BP Pulse Ox 98.7 F 53 L 18 111/53 99 07/02/17 05:52 07/02/17 05:52 07/02/17 05:52 07/02/17 05:52 07/02/17 05:52 Medical Decision Making - Medical Decision Making 07/02/17 06:36 agree with care from CHERYLE Scott *DC/Admit/Observation/Transfer Diagnosis at time of Disposition: Palpitations, Chest pain at rest - Referrals Referrals: Ace Chavez MD [Primary Care Provider] - - Patient Instructions - Post Discharge Activity
[2017-07-02 06:42] LABS: BASOPHIL 0.7 % (0-2.0); EOSINOPHIL 2.4 % (0-4.5); MCH 29.5 pg (25.7-33.7); MCHC 34.2 g/dl (32.0-36.0); MEAN CELL VOLUME 86.1 fl (80-96); MEAN PLT VOLUME 8.6 fl (7.5-11.1); NEUTROPHILS 63.3 % (42.8-82.8); PLATELET COUNT 248 K/MM3 (134-434); RDW 13.6 % (11.6-15.6)
[2017-07-02] MEDS ORDERED: ASPIRIN 81 MG CHEWABLE TABLETS ONE (06:48)
[2017-07-02 07:07] LABS: ALBUMIN 3.1 g/dl (3.4-5.0); ANION GAP 6 (8-16); BILIRUBIN,TOTAL 0.2 mg/dL (0.2-1.0); CO2 27 mmol/L (21-32); CREATININE 0.6 mg/dL (0.55-1.02); GLUCOSE,RANDOM 95 mg/dL (74-106); INR 0.94 (0.82-1.09); MAGNESIUM 2.1 mg/dL (1.8-2.4); PROTHROMBIN TIME (PATIENT) 10.6 SEC (9.98-11.88); SGOT/AST 10 U/L (15-37); SGPT/ALT 25 U/L (12-78); TOT PROT 6.4 g/dl (6.4-8.2)
[2017-07-02 07:09] LABS: ALK PHOS 64 U/L (45-117); CPK 100 IU/L (26-192); TROPONIN I < 0.02 ng/ml (0.00-0.05)
[2017-07-02 07:15] VITALS: BP 105/53; PULSE 66
--- NOTE | 2017-07-02 07:42 | PDOC ---
*Physical Exam - Vital Signs Last Vital Signs Temp Pulse Resp BP Pulse Ox 98.7 F 66 18 105/53 98 07/02/17 05:52 07/02/17 07:10 07/02/17 07:10 07/02/17 07:10 07/02/17 07:10 - Physical Exam General Appearance: Yes: Nourished. No: Appropriately Dressed, Apparent Distress HEENT: positive: Normal Voice Neck: positive: Supple Respiratory/Chest: positive: Lungs Clear, Normal Breath Sounds. negative: Respiratory Distress Cardiovascular: positive: Regular Rate, S1, S2 Gastrointestinal/Abdominal: positive: Soft. negative: Tender Integumentary: positive: Dry, Warm Neurologic: positive: Fully Oriented, Alert, Normal Mood/Affect ED Treatment Course - LABORATORY CBC & Chemistry Diagram: 07/02/17 06:29 07/02/17 06:29 - ADDITIONAL ORDERS Additional order review: Laboratory Results 07/02/17 07/02/17 07/02/17 06:29 06:29 06:29 PT with INR 10.60 INR 0.94 Sodium 142 Potassium 4.4 Chloride 109 H Carbon Dioxide 27 Anion Gap 6 L BUN 18 D Creatinine 0.6 D Creat Clearance w eGFR > 60 Random Glucose 95 Calcium 8.0 L Magnesium 2.1 Total Bilirubin 0.2 D AST 10 L D ALT 25 D Alkaline Phosphatase 64 Creatine Kinase 100 Troponin I < 0.02 Total Protein 6.4 Albumin 3.1 L Serum , Qual Negative 07/02/17 06:29 RBC 3.81 MCV 86.1 MCHC 34.2 RDW 13.6 MPV 8.6 Neutrophils % 63.3 Lymphocytes % 25.7 D Monocytes % 7.9 Eosinophils % 2.4 Basophils % 0.7 - Medications Given in the ED: ED Medications Discontinued Medications Generic Name Dose Route Start Last Admin Trade Name Freq PRN Reason Stop Dose Admin Aspirin 162 mg 07/02/17 06:01 07/02/17 07:02 Asa - PO 07/02/17 06:02 162 mg ONCE ONE Administration Medical Decision Making - Medical Decision Making 07/02/17 07:39 Pt signed out to me at 7 AM by CHERYLE Scott. Patient is a 27-year-old female, former smoker, does occasionally, here with son onset chest pain with shortness of breath and palpitations that woke her up from sleep last night. Reports that she attempted to go back to sleep symptoms recurred and has been recurring since usually in the setting of sleep. Denies similar issues in the past. Denies history of anxiety or insomnia and no recent stressors. As per prior team, patient stable and well appearing, in ED with normal EKG. Labs including d-dimer (has IUD in place but non-hormonal per pt) and chest x-ray pending. If workup negative can be discharged to follow up with PMD as per prior team 07/02/17 07:41 On reassessment, patient continues to appear well and stable in ED with unremarkable exam. States while she is awake, she is feeling fine, but whenever she tries to sleep symptoms recur. Possibly anxiety component. Will have patient follow up with PMD if symptoms persist 07/02/17 08:25 Dimer and chest x-ray negative. Patient stable for discharge at this time to follow up with her PMD *DC/Admit/Observation/Transfer Diagnosis at time of Disposition: Palpitations, Chest pain at rest - Discharge Dispostion Disposition: HOME Condition at time of disposition: Improved - Referrals Referrals: Ace Chavez MD [Primary Care Provider] - - Patient Instructions Printed Discharge Instructions: DI for Palpitations Additional Instructions: The cause of your symptoms are unclear but your labs, EKG and CXR were all normal If symptoms persist, please follow up with your PMD - Post Discharge Activity Forms/Work/School Notes: Back to Work
--- NOTE | 2017-07-02 11:41 | EKG ---
Test Reason : Blood Pressure : / mmHG Vent. Rate : 066 BPM Atrial Rate : 066 BPM P-R Int : 146 ms QRS Dur : 088 ms QT Int : 400 ms P-R-T Axes : 041 063 057 degrees QTc Int : 419 ms NORMAL SINUS RHYTHM WITH SINUS ARRHYTHMIA INVERTED T WAVES HAVE REPLACED NONSPECIFIC T WAVE ABNORMALITY IN NORMAL ECG WHEN COMPARED WITH ECG OF 09-FEB-2014 14:22, NO SIGNIFICANT CHANGE WAS FOUND Confirmed by AGATA CHOUDHARY MD ([id number]) on 07/02/2017 11:41:24 AM Referred By: Confirmed By:AGATA CHOUDHARY MD
== END 2017-07-02 08:31 | disposition home or self-care (01) ==
LOC: JER 04:53
DX: R07.9 Chest pain, unspecified (principal); R00.2 Palpitations; Z87.891 Personal history of nicotine dependence; J45.909 Unspecified asthma, uncomplicated
CPT/HCPCS: 36415; 71020-TC; 80053; 82550; 83735; 84484; 84703; 85025; 85379; 85610; 93005; 93010; 99282-25

== ENCOUNTER 2017-08-13 02:18 | Emergency (ER) | payer OTHER ==
[2017-08-13 02:43] VITALS: BP 95/52; PULSE 84; TEMP 97.6; BMI 29.7
--- NOTE | 2017-08-13 03:22 | PDOC ---
History of Present Illness - General Chief Complaint: Pain Stated Complaint: THROAT PAIN Time Seen by Provider: 08/13/17 02:27 - History of Present Illness Initial Comments: 08/13/17 03:20 CHIEF COMPLAINT: HISTORY OF PRESENT ILLNESS: 27 yo F with hx of trigeminal neuralgia presents to ED with right sided throat pain. Patient reports that she has had intermittent pain and "feels a bump" to her inferior mandible. She reports that this has been going on for about a month and "it will go away for a few weeks and then come back." She denies any fever, chills, nausea, vomiting, diarrhea, headache , cough, sneezing, runny nose, or other URI symptoms. She denies any difficulty swallowing or breathing, or any swelling to her tongue, mouth, lips, throat, or neck. PAST MEDICAL HISTORY: Denies past medical history FAMILY HISTORY: Denies SOCIAL HISTORY: Denies tobacco, alcohol, illicit drug use. SURGICAL HISTORY: Denies ALLERGIES: No known drug allergies REVIEW OF SYSTEMS as per HPI. PHYSICAL EXAM General Appearance: Well-appearing, appropriately dressed. No apparent distress , no intoxication. HEENT: EOMI, PERRLA, normal ENT inspection, normal voice, TMs normal, pharynx normal. No conjunctival pallor. No photophobia, scleral icterus. Neck: Right posterior cervical lymphadenopathy. Supple. Trachea midline. No tenderness, rigidity, carotid bruit, stridor, or thyromegaly. Respiratory/Chest: Lungs CTAB. Cardiovascular: RRR. S1, S2. Musculoskeletal/Extremities: Normal inspection. FROM of all extremities, normal capillary refill. Pelvis Stable. No CVA tenderness. No tenderness to extremities, pedal edema, swelling, erythema or deformity. Integumentary: Appropriate color, dry, warm. 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 Fully oriented, alert. Appropriate mood/affect. Motor strength 5/5. No appreciable EOM palsy, facial droop or sensory deficit. Past History - Past Medical History Allergies/Adverse Reactions: Allergies Allergy/AdvReac Type Severity Reaction Status Date / Time No Known Drug Allergies Allergy Verified 08/13/17 02:40 Home Medications: Ambulatory Orders Ibuprofen [Motrin -] 600 mg PO TID PRN #21 tablet 08/13/17 Anemia: No Asthma: Yes Cancer: No Cardiac Disorders: No CVA: No COPD: No DVT: No Dementia: No Diabetes: No Dialysis: No GI Disorders: No Disorders: No HTN: No Hypercholesterolemia: No Kidney Stones: No Liver Disease: No Psychiatric Problems: No Seizures: No Thyroid Disease: No Lung CA: No - Immunization History Immunization Up to Date: Yes - Suicide/Smoking/Psychosocial Hx Smoking History: Unknown if ever smoked Have you smoked in the past 12 months: No Number of Cigarettes Smoked Daily: 20 If you are a former smoker, when did you quit?: 3 WEEKS AGO Information on smoking cessation initiated: No 'Breaking Loose' booklet given: 08/13/16 Hx Alcohol Use: No Drug/Substance Use Hx: No Substance Use Type: None Hx Substance Use Treatment: No *Physical Exam - Vital Signs Last Vital Signs Temp Pulse Resp BP Pulse Ox 97.6 F 84 20 95/52 99 08/13/17 02:41 08/13/17 02:41 08/13/17 02:41 08/13/17 02:41 08/13/17 02:41 ED Treatment Course - ADDITIONAL ORDERS Additional order review: Laboratory Results 08/13/17 02:50 Urine HCG, Qual Negative - RADIOLOGY Radiology Studies Ordered: Category Date Time Status NECK SOFT TISSUE [RAD] Stat Radiology 08/13/17 02:34 Ordered Medical Decision Making - Medical Decision Making 08/13/17 03:22 27 yo F with hx of trigeminal neuralgia presents to ED with right sided throat pain. -soft tissue neck x-ray x-ray negative for foreign body. Patient reassessed; at this time she reports that she has had a history of "sores" inside her mouth and recently had these prior to noticing the bump in her neck. Likely lymphadenopathy. Advised patient to take medication as prescribed and follow up with ENT if symptoms persist. Advised patient of signs and symptoms for return to ED. Patient verbalized understanding and agrees to plan. *DC/Admit/Observation/Transfer Diagnosis at time of Disposition: Lymphadenopathy of left cervical region - Discharge Dispostion Disposition: HOME Condition at time of disposition: Stable Admit: No - Prescriptions Prescriptions: Ibuprofen [Motrin -] 600 mg PO TID PRN #21 tablet PRN Reason: Pain - Referrals Referrals: Ace Chavez MD [Primary Care Provider] - Rafa Amin MD [Staff Physician] - - Patient Instructions Printed Discharge Instructions: DI for Lymphadenopathy Additional Instructions: Please take Motrin for pain as prescribed. Follow up with ENT in one week if symptoms persist. If you develop any shortness of breath, swelling of your neck , throat, lips, tongue, or mouth, difficulty breathing, or any new or worsening symptoms, please return to the ER. - Post Discharge Activity
--- NOTE | 2017-08-13 03:32 | PDOC ---
*Physical Exam - Vital Signs Last Vital Signs Temp Pulse Resp BP Pulse Ox 97.6 F 84 20 95/52 99 08/13/17 02:41 08/13/17 02:41 08/13/17 02:41 08/13/17 02:41 08/13/17 02:41 ED Treatment Course - ADDITIONAL ORDERS Additional order review: Laboratory Results 08/13/17 02:50 Urine HCG, Qual Negative Medical Decision Making - Medical Decision Making 08/13/17 03:32 agree with care from CHERYLE Little *DC/Admit/Observation/Transfer Diagnosis at time of Disposition: Lymphadenopathy of left cervical region - Discharge Dispostion Disposition: HOME Condition at time of disposition: Stable - Prescriptions Prescriptions: Ibuprofen [Motrin -] 600 mg PO TID PRN #21 tablet PRN Reason: Pain - Referrals Referrals: Ace Chavez MD [Primary Care Provider] - Rafa Amin MD [Staff Physician] - - Patient Instructions Printed Discharge Instructions: DI for Lymphadenopathy Additional Instructions: Please take Motrin for pain as prescribed. Follow up with ENT in one week if symptoms persist. If you develop any shortness of breath, swelling of your neck , throat, lips, tongue, or mouth, difficulty breathing, or any new or worsening symptoms, please return to the ER. - Post Discharge Activity
== END 2017-08-13 05:22 | disposition home or self-care (01) ==
LOC: JER 02:18
DX: R59.0 Localized enlarged lymph nodes (principal)
CPT/HCPCS: 70360-TC; 84703; 99282-25

== ENCOUNTER 2017-08-31 04:05 | Emergency (ER) | payer OTHER ==
[2017-08-31 04:18] VITALS: BP 104/70; TEMP 97.8; BMI 29.7
--- NOTE | 2017-08-31 04:42 | PDOC ---
History of Present Illness - General Chief Complaint: Shortness of Breath Stated Complaint: SHORTNESS OF BREATH/CHEST PAIN Time Seen by Provider: 08/31/17 04:17 History Source: Patient Exam Limitations: No Limitations - History of Present Illness Initial Comments: This is a 27 YOF with chronic pain from scoliosis (takes methocarbamol and gets epidural injections per pain management doctor) who presents c/o episodic diffuse chest pain radiating up to her neck and to both axilla every night for the past few weeks. She describes it as a tightness and like an elephant sitting on her chest. It worsens when she lays down flat, and also when she talks. The pain started tonight at 9 pm at which time she took Tylenol and Methocarbamol which gave her partial relief. She entertained guests and then laid down to sleep at about 1:30 am at which time the pain recurred and was much more intense. She additionally has had palpitations, SOB, and a dry cough lately, but she denies any nausea, vomiting, abdominal pain, diarrhea, constipation, or vaginal discharge. She is on her menstrual period now, and it has been irregular this month. She menstruated from 08/16-08/22 and then stopped for only 3 days, then began menstruating again. She has a copper IUD and denies any hormone use, recent travel, immobilization, or surgery, hemoptysis, or personal or family h/o blood clots. Past History - Past Medical History Allergies/Adverse Reactions: Allergies Allergy/AdvReac Type Severity Reaction Status Date / Time No Known Drug Allergies Allergy Verified 08/31/17 04:16 Home Medications: Ambulatory Orders Naproxen 500 mg PO BID PRN #20 tablet 08/31/17 Anemia: No Asthma: Yes Cancer: No Cardiac Disorders: No CVA: No COPD: No DVT: No Dementia: No Diabetes: No Dialysis: No GI Disorders: No Disorders: No HTN: No Hypercholesterolemia: No Kidney Stones: No Liver Disease: No Psychiatric Problems: No Seizures: No Thyroid Disease: No Lung CA: No - Immunization History Immunization Up to Date: Yes - Suicide/Smoking/Psychosocial Hx Smoking History: Never smoked Have you smoked in the past 12 months: No Number of Cigarettes Smoked Daily: 20 If you are a former smoker, when did you quit?: 3 WEEKS AGO Information on smoking cessation initiated: No 'Breaking Loose' booklet given: 08/13/16 Hx Alcohol Use: No Drug/Substance Use Hx: No Substance Use Type: None Hx Substance Use Treatment: No Review of Systems - Review of Systems Able to Perform ROS?: Yes Constitutional: No: Chills, Fever, Unexplained wgt Loss HEENTM: No: Nose Congestion, Throat Pain Respiratory: Yes: Cough, Shortness of Breath Cardiac (ROS): Yes: Chest Pain, Palpitations ABD/GI: No: Constipated, Diarrhea, Nausea, Vomiting : No: Burning, Dysuria Musculoskeletal: No: Back Pain, Neck Pain Integumentary: No: Bruising, Rash Neurological: No: Headache, Numbness, Tingling, Weakness, Dizziness Endocrine: No: Unexplained Weight Gain, Unexplained Weight Loss *Physical Exam - Vital Signs Last Vital Signs Temp Pulse Resp BP Pulse Ox 97.8 F 76 18 104/70 99 08/31/17 05:42 08/31/17 05:42 08/31/17 05:42 08/31/17 05:42 08/31/17 05:42 ED Treatment Course - RADIOLOGY Radiology Studies Ordered: Category Date Time Status CHEST PA & LAT [RAD] Stat Radiology 08/31/17 04:41 Ordered Medical Decision Making - Medical Decision Making 27F with chronic pain 2/2 scoliosis p/w chest pain nightly for the past few weeks worse tonight, with SOB, nausea, palpitations. On exam VS wnl, patient appears anxious but no additional distress, normal HEENT /heart/lung/abdomen exams. DDX IBNLT ACS, PNA/bronchitis, PTX, atelectasis, GERD, PE, pericarditis, anxiety /stress response, cholecystitis, etc. Ordered is EKG and CXR per Dr. Ding's request. 08/31/17 04:56 Patient refusing CXR states she has been to many hospitals and has chest x-rays. She is counseled on the possibility of missing significant diagnosis without a CXR this visit, still refuses. She will have the EKG. 08/31/17 05:11 EKG without acute ischemic changes. Patient discloses KARINE Humphries that she has been having increasing feelings of anxiety/panic nightly. Feels anxious at night that there is a whole new 24 hours coming up. I did talk with the patient about the importance of following up with her PCP's office. Her official PCP is on maternity leave per the patient's report and she has not been seen in clinic in 2 mo. I do strongly recommend to her that she see one of her PCP's partners and she agrees to do so. She feels comfortable with plan for discharge home and f/u on Friday with PCP office. E-Rx sent to her pharmacy for Naproxen 500 mg. *DC/Admit/Observation/Transfer Diagnosis at time of Disposition: Panic attacks Chest pain Qualifiers: Chest pain type: unspecified Qualified Code(s): R07.9 - Chest pain, unspecified - Discharge Dispostion Disposition: HOME Condition at time of disposition: Stable Admit: No - Prescriptions Prescriptions: Naproxen 500 mg PO BID PRN #20 tablet PRN Reason: Pain - Referrals Referrals: STAFF,NOT ON [Primary Care Provider] - - Patient Instructions Printed Discharge Instructions: DI for Panic Disorder, DI for Chest Pain Additional Instructions: You were seen in the ER for chest pain. We did an EKG and it was normal. We offered a chest x-ray and you did not want this because you have had this study recently. We believe the pain has to do with the panic feelings you are having at night. Please take naproxen as needed for pain, once every 12 hours. You can take Tylenol too. Please follow up with your regular doctor's office on Friday for a same-day appointment to discuss your recurrent chest pain and these panic symptoms. Return to the ER for any new or worsening symptoms like severe chest pain, vomiting, fever, difficulty breathing, or other symptoms. - Post Discharge Activity
--- NOTE | 2017-08-31 05:12 | PDOC ---
Attending Attestation - Resident Resident Name: ClotildeJackelyn - ED Attending Attestation I have performed the following: I have examined & evaluated the patient, The case was reviewed & discussed with the resident, I agree w/resident's findings & plan - HPI HPI: 08/31/17 05:11 Pt comes with CP and SOB; she has been here for the same in the past - Physicial Exam PE: 08/31/17 05:11 Exam normal; agree with resident. Pulsox is 98% RA Afenrile. EKG normal sinus Pt refusing CXR - Medical Decision Making 08/31/17 05:12 Follow with PMD
[2017-08-31 05:43] VITALS: PULSE 76
--- NOTE | 2017-08-31 10:27 | EKG ---
Test Reason : Blood Pressure : / mmHG Vent. Rate : 066 BPM Atrial Rate : 066 BPM P-R Int : 142 ms QRS Dur : 088 ms QT Int : 392 ms P-R-T Axes : 037 054 042 degrees QTc Int : 410 ms NORMAL SINUS RHYTHM NORMAL ECG WHEN COMPARED WITH ECG OF 02-JUL-2017 06:14, NO SIGNIFICANT CHANGE WAS FOUND Confirmed by PERNELL MOE MD ([id number]) on 08/31/2017 10:26:40 AM Referred By: Confirmed By:PERNELL MOE MD
== END 2017-08-31 05:44 | disposition home or self-care (01) ==
LOC: JER 04:05
DX: F41.0 Panic disorder [episodic paroxysmal anxiety] (principal); R07.9 Chest pain, unspecified; M41.80 Other forms of scoliosis, site unspecified
CPT/HCPCS: 93005; 93010; 99282-25

== ENCOUNTER 2018-01-03 01:14 | Emergency (ER) | payer OTHER ==
[2018-01-03 01:39] VITALS: BP 119/61; PULSE 92; TEMP 98; BMI 29.7
--- NOTE | 2018-01-03 04:10 | PDOC ---
History of Present Illness - General Chief Complaint: Sore Throat Stated Complaint: SORE THROAT, WEAKNESS Time Seen by Provider: 01/03/18 02:48 History Source: Patient Exam Limitations: No Limitations - History of Present Illness Initial Comments: 01/03/18 04:16 Best Contact:[phone] Pmhx:Scoliosis Pshx:N/A Allergies:NKDA LMP:12/14/2017 27-year-old female presents to the ER complaining of sore throat 2 days without fever, chills, nausea/vomiting, headache, dizziness, lightheadedness, facial pain, rhinorrhea, nasal congestion, earaches, difficulty swallowing, neck pain/stiffness, back pains, chest pain, shortness of breath, flank pains, urinary symptoms. Past History - Past Medical History Allergies/Adverse Reactions: Allergies Allergy/AdvReac Type Severity Reaction Status Date / Time No Known Drug Allergies Allergy Verified 01/03/18 01:37 Home Medications: Ambulatory Orders Naproxen 500 mg PO BID PRN #20 tablet 08/31/17 Famotidine [Pepcid -] 20 mg PO DAILY #10 tablet 10/24/17 Ondansetron [Zofran -] 4 mg PO TID PRN #21 tablet 10/24/17 Amoxicillin - [Amoxicillin 500mg Capsule -] 500 mg PO BID #14 capsule 01/03/18 Nystatin Oral Suspension - [Nystatin Oral Susp 569570 Units/5 ML -] 500,000 units PO Q6H #1 cup 01/03/18 Anemia: No Asthma: Yes Cancer: No Cardiac Disorders: No CVA: No COPD: No DVT: No Dementia: No Diabetes: No Dialysis: No GI Disorders: No Disorders: No HTN: No Hypercholesterolemia: No Kidney Stones: No Liver Disease: No Psychiatric Problems: No Seizures: No Thyroid Disease: No Lung CA: No - Immunization History Immunization Up to Date: Yes - Suicide/Smoking/Psychosocial Hx Smoking History: Never smoked Have you smoked in the past 12 months: No Number of Cigarettes Smoked Daily: 20 If you are a former smoker, when did you quit?: 3 WEEKS AGO Information on smoking cessation initiated: No 'Breaking Loose' booklet given: 08/13/16 Hx Alcohol Use: No Drug/Substance Use Hx: No Substance Use Type: None Hx Substance Use Treatment: No Review of Systems - Review of Systems Able to Perform ROS?: Yes Comments:: 01/03/18 04:22 CONSTITUTIONAL: Absent: fever, chills, diaphoresis, generalized weakness, malaise, loss of appetite HEENT: +throat pain Absent: rhinorrhea, nasal congestion, throat swelling, difficulty swallowing, mouth swelling, ear pain, eye pain, visual Changes CARDIOVASCULAR: Absent: chest pain, loss of consciousness, palpitations, irregular heart rate, peripheral edema RESPIRATORY: Absent: cough, shortness of breath, dyspnea with exertion, orthopnea, wheezing, stridor, hemoptysis GASTROINTESTINAL: Absent: abdominal pain, abdominal distension, nausea, vomiting, diarrhea, constipation, melena, hematochezia GENITOURINARY: Absent: dysuria, frequency, urgency, hesitancy, hematuria, flank pain, genital pain MUSCULOSKELETAL: Absent: myalgia, arthralgia, joint swelling SKIN: Absent: rash, itching, pallor HEMATOLOGIC/IMMUNOLOGIC: Absent: easy bleeding, easy bruising, lymphadenopathy, frequent infections ENDOCRINE: Absent: unexplained weight gain, unexplained weight loss, heat intolerance, cold intolerance NEUROLOGIC: Absent: headache, focal weakness or paresthesias, dizziness, unsteady gait, seizure, mental status changes, bladder or bowel incontinence PSYCHIATRIC: Absent: anxiety, depression, suicidal or homicidal ideation, hallucinations. Is the patient limited [place] proficient: No *Physical Exam - Vital Signs Last Vital Signs Temp Pulse Resp BP Pulse Ox 98.0 F 92 H 20 119/61 98 01/03/18 01:38 01/03/18 01:38 01/03/18 01:38 01/03/18 01:38 01/03/18 01:38 - Physical Exam Comments: 01/03/18 04:23 GENERAL: Well developed, well nourished. Awake and alert. No acute distress. HEENT: Normocephalic, atraumatic. PERRLA, EOMI. No conjunctival pallor. Sclera are non- icteric. Moist mucous membranes. Oropharynx is clear. NECK: Supple. Full ROM. No JVD. Carotid pulses 2+ and symmetric, without bruits. No thyromegaly. No lymphadenopathy. CARDIOVASCULAR: Regular rate and rhythm. No murmurs, rubs, or gallops. Distal pulses are 2+ and symmetric. PULMONARY: No evidence of respiratory distress. Lungs clear to auscultation bilaterally. No wheezing, rales or rhonchi. ABDOMINAL: Soft. Non-tender. Non-distended. No rebound or guarding. No organomegaly. Normoactive bowel sounds. MUSCULOSKELETAL Normal range of motion at all joints. No bony deformities or tenderness. No CVA tenderness. EXTREMITIES: No cyanosis. No clubbing. No edema. No calf tenderness. SKIN: Warm and dry. Normal capillary refill. No rashes. No jaundice. NEUROLOGICAL: Alert, awake, appropriate. Cranial nerves 2-12 intact. No deficits to light touch and temperature in face, upper extremities and lower extremities. No motor deficits in the in face, upper extremities and lower extremities. Normoreflexic in the upper and lower extremities. Normal speech. Toes are down- going bilaterally. Gait is normal without ataxia. PSYCHIATRIC: Cooperative. Good eye contact. Appropriate mood and affect. ED Treatment Course - ADDITIONAL ORDERS Additional order review: 01/03/18 02:00 Group A Strep Rapid Antigen - Final Throat *DC/Admit/Observation/Transfer Diagnosis at time of Disposition: Viral pharyngitis, Oral candidiasis - Discharge Dispostion Disposition: HOME Condition at time of disposition: Stable Admit: No - Prescriptions Prescriptions: Amoxicillin - [Amoxicillin 500mg Capsule -] 500 mg PO BID #14 capsule Nystatin Oral Suspension - [Nystatin Oral Susp 294429 Units/5 ML -] 500,000 units PO Q6H #1 cup - Referrals Referrals: Rafa Amin MD [Staff Physician] - - Patient Instructions Printed Discharge Instructions: DI for Thrush, DI for Viral Pharyngitis Additional Instructions: Follow-up with your doctor or the doctor listed on your discharge Antibiotics as prescribed Nystatin swish and spit Return back to the ER for severe/persistent or worsening symptoms - Post Discharge Activity
== END 2018-01-03 04:45 | disposition home or self-care (01) ==
LOC: JER 01:14
DX: J02.9 Acute pharyngitis, unspecified (principal); B97.89 Other viral agents as the cause of diseases classified elsewhere; B37.0 Candidal stomatitis
CPT/HCPCS: 87070; 87430; 99281-25

== ENCOUNTER 2018-01-26 12:28 | Emergency (ER) | payer OTHER ==
[2018-01-26 12:43] VITALS: BP 115/56; PULSE 84; TEMP 98.3; BMI 29.7
--- NOTE | 2018-01-26 13:18 | PDOC ---
History of Present Illness - General Chief Complaint: Pain, Acute Stated Complaint: WEAKNESS Time Seen by Provider: 01/26/18 12:53 History Source: Patient Exam Limitations: No Limitations - History of Present Illness Initial Comments: 01/26/18 13:19 Patient came for evaluation of left shoulder pain. States has had intermittent pain to the shoulder over the past few months without any knowledge of specific injury. Hot to physical therapist who has used some manipulative treatments with minimal resolved. Patient has not taken any medication. Was concerned about pain meds as she may be . Severity: reports: mild, moderate Pain Location: reports: upper extremity Modifying Factors: improves with: pain medication Loss of Consciousness: no loss of consciousness (left shoulder) Associated Symptoms (Fall): denies symptoms Past History - Travel Traveled outside of the country in the last 30 days: No Close contact w/someone who was outside of country & ill: No - Past Medical History Allergies/Adverse Reactions: Allergies Allergy/AdvReac Type Severity Reaction Status Date / Time No Known Drug Allergies Allergy Verified 01/26/18 12:32 Home Medications: Ambulatory Orders Naproxen [Naprosyn -] 500 mg PO TID #30 tablet 01/26/18 Anemia: No Asthma: Yes Cancer: No Cardiac Disorders: No CVA: No COPD: No DVT: No Dementia: No Diabetes: No Dialysis: No GI Disorders: No Disorders: No HTN: No Hypercholesterolemia: No Kidney Stones: No Liver Disease: No Psychiatric Problems: No Seizures: No Thyroid Disease: No Lung CA: No - Immunization History Immunization Up to Date: Yes - Suicide/Smoking/Psychosocial Hx Smoking History: Former smoker Have you smoked in the past 12 months: No Number of Cigarettes Smoked Daily: 20 If you are a former smoker, when did you quit?: smokes hookah daily Information on smoking cessation initiated: No 'Breaking Loose' booklet given: 08/13/16 Hx Alcohol Use: No Drug/Substance Use Hx: No Substance Use Type: None Hx Substance Use Treatment: No Trauma Specific PMHX - Complaint Specific PMHX Back Injury: No Neck Injury: No Review of Systems - Review of Systems Able to Perform ROS?: Yes Is the patient limited [place] proficient: Yes Constitutional: Yes: Symptoms Reported, See HPI, Malaise. No: Fever, Loss of Appetite HEENTM: Yes: See HPI. No: Symptoms Reported Respiratory: Yes: See HPI. No: Symptoms reported, Cough Musculoskeletal: Yes: Symptoms Reported, See HPI, Back Pain, Joint Pain (left shoulder capsule Deb has strong flexion and extension to hands, neurovascular intact to fingers), Joint Swelling Neurological: Yes: See HPI. No: Symptoms reported All Other Systems: Reviewed and Negative *Physical Exam - Vital Signs Last Vital Signs Temp Pulse Resp BP Pulse Ox 98.3 F 84 18 115/56 98 01/26/18 12:32 01/26/18 12:32 01/26/18 12:32 01/26/18 12:32 01/26/18 12:32 - Physical Exam General Appearance: Yes: Nourished, Appropriately Dressed, Apparent Distress, Mild Distress HEENT: positive: YOHANNES, Normal ENT Inspection, TMs Normal, Pharynx Normal Neck: positive: Tender, Supple Respiratory/Chest: positive: Lungs Clear Musculoskeletal: positive: Decreased Range of Motion (decreased range of motion to left shoulder, able to abduct and forward flex but is increased pain against resistance at 90 both. Posterior flexion is worse. Neurovascular intact to hand , no pain with supination and pronation at wrist. No clavicular or scapular pain. Left shoulder appears mildly swollen). negative: Normal Inspection Integumentary: positive: Normal Color, Dry, Warm Neurologic: positive: traffic control technician II-XII NML intact, Fully Oriented, Alert, Normal Mood/ Affect Progress Note - Progress Note Progress Note: X-ray negative for fractures or dislocation however patient has significant scoliosis which could be affecting her shoulder joint. Encouraged patient to have follow-up for reevaluation of scoliosis treatment I did discuss possible physical therapy of her shoulder with her physician tomorrow. Recommend NSAIDs *DC/Admit/Observation/Transfer Diagnosis at time of Disposition: Left shoulder strain Qualifiers: Encounter type: initial encounter Qualified Code(s): S46.912A - Strain of unspecified muscle, fascia and tendon at shoulder and upper arm level, left arm , initial encounter - Discharge Dispostion Disposition: HOME Condition at time of disposition: Stable Decision to Admit order: No - Prescriptions Prescriptions: Naproxen [Naprosyn -] 500 mg PO TID #30 tablet - Referrals Referrals: Warner Braun MD [Staff Physician] - - Patient Instructions Printed Discharge Instructions: DI for Shoulder Sprain Additional Instructions: Rest, ice to area on and off for 15 minutes 4-6 times a day Avoid heavy lifting or exercise until pain and swelling is resolved or until further directed Keep area highly elevated to reduce swelling Use splints/Anson wrap as directed Followup with orthopedist in one to 2 days if not improving, if significantly improved may wait one week for followup with orthopedist May use ibuprofen 2-200 mg tablets every 6 hours as needed for pain - Post Discharge Activity Forms/Work/School Notes: Back to Work
== END 2018-01-26 16:00 | disposition home or self-care (01) ==
LOC: JERFT 12:28
DX: S46.812A Strain of other muscles, fascia and tendons at shoulder and upper arm level, left arm, initial encounter (principal); M41.80 Other forms of scoliosis, site unspecified; Z87.891 Personal history of nicotine dependence; X58.XXXA Exposure to other specified factors, initial encounter; Y93.89 Activity, other specified; Y92.89 Other specified places as the place of occurrence of the external cause; Y99.8 Other external cause status
CPT/HCPCS: 36415; 73030-TC-LT-FY; 84702; 99281-25

== ENCOUNTER 2018-06-13 03:43 | Emergency (ER) | payer OTHER ==
[2018-06-13 04:06] VITALS: BP 124/74; PULSE 69; TEMP 97.6; BMI 34.3
[2018-06-13] MEDS ORDERED: PANTOPRAZOLE SODIUM 40 MG VIAL IVPUSH ONE (04:32)
--- NOTE | 2018-06-13 04:32 | PDOC ---
History of Present Illness - General Chief Complaint: Pain Stated Complaint: HIP/STOMACH PAIN Time Seen by Provider: 06/13/18 04:32 History Source: Patient Exam Limitations: No Limitations - History of Present Illness Travel History: No Initial Comments: 06/14/18 00:03 28-year-old female presents to the emergency department with 2 complaints. Patient states she's been having a right sided chronic hip pain 2 months and has appointment to see an orthopedic surgeon in a week. Patient states the pain is described as 6/10 dull nonradiating intermittent discomfort which is exacerbated on certain positions and alleviated at rest. Patient denies any injury or fall area patient denies extremity numbness or tingling sensation. Patient is also complaining of epigastric abdominal pains 1 month. The pain is described as 4/10 burning sensation to the epigastric region causing a sour taste in her mouth and constant reflux. Patient denies nausea, vomiting, fever/ chills, neck pains, back pains, chest pain, shortness of breath, flank pains, urinary symptoms. Past History - Past Medical History Allergies/Adverse Reactions: Allergies Allergy/AdvReac Type Severity Reaction Status Date / Time No Known Drug Allergies Allergy Verified 06/13/18 04:04 Home Medications: Ambulatory Orders NK [No Known Home Medication] 06/13/18 Anemia: No Asthma: Yes Cancer: No Cardiac Disorders: No CVA: No COPD: No DVT: No Dementia: No Diabetes: No Dialysis: No GI Disorders: No Disorders: No HTN: No Hypercholesterolemia: No Kidney Stones: No Liver Disease: No Psychiatric Problems: No Seizures: No Thyroid Disease: No Lung CA: No - Immunization History Immunization Up to Date: Yes - Suicide/Smoking/Psychosocial Hx Smoking History: Former smoker Have you smoked in the past 12 months: No Number of Cigarettes Smoked Daily: 20 If you are a former smoker, when did you quit?: 1 year Information on smoking cessation initiated: No 'Breaking Loose' booklet given: 08/13/16 Hx Alcohol Use: No Drug/Substance Use Hx: No Substance Use Type: None Hx Substance Use Treatment: No Review of Systems - Review of Systems Able to Perform ROS?: Yes Comments:: 06/14/18 00:02 CONSTITUTIONAL: Absent: fever, chills, diaphoresis, generalized weakness, malaise, loss of appetite HEENT: Absent: rhinorrhea, nasal congestion, throat pain, throat swelling, difficulty swallowing, mouth swelling, ear pain, eye pain, visual Changes CARDIOVASCULAR: Absent: chest pain, loss of consciousness, palpitations, irregular heart rate, peripheral edema RESPIRATORY: Absent: cough, shortness of breath, dyspnea with exertion, orthopnea, wheezing, stridor, hemoptysis GASTROINTESTINAL: +epigastric abd pain Absent: abdominal distension, nausea, vomiting, diarrhea, constipation, melena, hematochezia GENITOURINARY: Absent: dysuria, frequency, urgency, hesitancy, hematuria, flank pain, genital pain MUSCULOSKELETAL: +right hip pain Absent: myalgia, arthralgia, joint swelling SKIN: Absent: rash, itching, pallor HEMATOLOGIC/IMMUNOLOGIC: Absent: easy bleeding, easy bruising, lymphadenopathy, frequent infections ENDOCRINE: Absent: unexplained weight gain, unexplained weight loss, heat intolerance, cold intolerance NEUROLOGIC: Absent: headache, focal weakness or paresthesias, dizziness, unsteady gait, seizure, mental status changes, bladder or bowel incontinence PSYCHIATRIC: Absent: anxiety, depression, suicidal or homicidal ideation, hallucinations. Is the patient limited Bots[place]an proficient: No *Physical Exam - Vital Signs Last Vital Signs Temp Pulse Resp BP Pulse Ox 97.6 F 69 20 124/74 98 06/13/18 03:45 06/13/18 03:45 06/13/18 03:45 06/13/18 03:45 06/13/18 03:45 - Physical Exam Comments: 06/14/18 00:03 GENERAL: Well developed, well nourished. Awake and alert. No acute distress. HEENT: Normocephalic, atraumatic. PERRLA, EOMI. No conjunctival pallor. Sclera are non- icteric. Moist mucous membranes. Oropharynx is clear. NECK: Supple. Full ROM. No JVD. Carotid pulses 2+ and symmetric, without bruits. No thyromegaly. No lymphadenopathy. CARDIOVASCULAR: Regular rate and rhythm. No murmurs, rubs, or gallops. Distal pulses are 2+ and symmetric. PULMONARY: No evidence of respiratory distress. Lungs clear to auscultation bilaterally. No wheezing, rales or rhonchi. ABDOMINAL: Soft. Non-tender. Non-distended. No rebound or guarding. No organomegaly. Normoactive bowel sounds. MUSCULOSKELETAL Normal range of motion at all joints. No bony deformities or tenderness. No CVA tenderness. EXTREMITIES: No cyanosis. No clubbing. No edema. No calf tenderness. SKIN: Warm and dry. Normal capillary refill. No rashes. No jaundice. NEUROLOGICAL: Alert, awake, appropriate. Cranial nerves 2-12 intact. No deficits to light touch and temperature in face, upper extremities and lower extremities. No motor deficits in the in face, upper extremities and lower extremities. Normoreflexic in the upper and lower extremities. Normal speech. Toes are down- going bilaterally. Gait is normal without ataxia. PSYCHIATRIC: Cooperative. Good eye contact. Appropriate mood and affect. ED Treatment Course - LABORATORY CBC & Chemistry Diagram: 06/13/18 04:25 06/13/18 04:25 Progress Note - Progress Note Progress Note: 0600hrs: pt states he feels better. Req d/c *DC/Admit/Observation/Transfer Diagnosis at time of Disposition: Chronic right hip pain Gastritis Qualifiers: Gastritis type: other gastritis Chronicity: acute Gastritis bleeding: without bleeding Qualified Code(s): K29.00 - Acute gastritis without bleeding - Discharge Dispostion Disposition: HOME Condition at time of disposition: Stable Decision to Admit order: No - Referrals Referrals: Lopez Merrill MD [Staff Physician] - - Patient Instructions Printed Discharge Instructions: DI for Gastritis Additional Instructions: Take an anti-acid such as Nexium for 4 weeks Must follow up with senior java engineer within 3 days for an endoscopy Return back to the ER for severe/persistent or worsening symptoms - Post Discharge Activity
[2018-06-13] MEDS ORDERED: RANITIDINE HCL 150 MG TABLET (FP) PO ONE (04:33)
[2018-06-13] MEDS ORDERED: MAG HYDROX/AL HYDROX/SIMETH 30 ML UNIT-DOSE CUP PO ONE (04:33)
[2018-06-13] MEDS ORDERED: SODIUM CHLORIDE 1,000 ML IV STA (04:40)
[2018-06-13 04:51] LABS: BASO % 0.7 % (0-2.0); EOS % 2.9 % (0-4.5); HEMATOCRIT 37.5 % (32.4-45.2); HEMOGLOBIN 12.7 GM/dL (10.7-15.3); LYMPH % 39.2 % (8-40); MCH 29.7 pg (25.7-33.7); MCHC 33.8 g/dl (32.0-36.0); MEAN CELL VOLUME 87.8 fl (80-96); MEAN PLT VOLUME 8.1 fl (7.5-11.1); MONO % 8.3 % (3.8-10.2); NEUT % 48.9 % (42.8-82.8); PLATELET COUNT 239 K/MM3 (134-434); RBC 4.28 M/mm3 (3.60-5.2); RDW 13.9 % (11.6-15.6); WHITE BLOOD COUNT 7.7 K/mm3 (4.0-10.0)
[2018-06-13 05:20] LABS: ALBUMIN 3.4 g/dl (3.4-5.0); ALK PHOS 57 U/L (45-117); ANION GAP 5 MMOL/L (8-16); BILIRUBIN,TOTAL 0.3 mg/dL (0.2-1); BLOOD UREA NITROGEN 10 mg/dL (7-18); CALCIUM 8.8 mg/dL (8.5-10.1); CHLORIDE 110 mmol/L (98-107); CO2 26 mmol/L (21-32); CREATININE 0.5 mg/dL (0.55-1.3); GLUCOSE,RANDOM 97 mg/dL (74-106); LIPASE 135 U/L (73-393); POTASSIUM 4.7 mmol/L (3.5-5.1); SGOT/AST 9 U/L (15-37); SGPT/ALT 20 U/L (13-61); SODIUM 142 mmol/L (136-145); TOT PROT 6.4 g/dl (6.4-8.2)
[2018-06-13] MEDS ORDERED: RANITIDINE HCL 150 MG TABLET (FP) ONE (05:20)
[2018-06-13] MEDS ORDERED: PANTOPRAZOLE SODIUM 40 MG/100 ML BAG IVPB ONE (05:20)
[2018-06-13] MEDS ORDERED: MAG HYDROX/AL HYDROX/SIMETH 30 ML UNIT-DOSE CUP ONE (05:20)
== END 2018-06-13 06:15 | disposition home or self-care (01) ==
LOC: JER 03:43
PROC: 3E0337Z Introduction of Electrolytic and Water Balance Substance into Peripheral Vein, Percutaneous Approach (ICD-10-PCS; principal; 2018-06-13)
PROC: 3E033GC Introduction of Other Therapeutic Substance into Peripheral Vein, Percutaneous Approach (ICD-10-PCS; 2018-06-13)
DX: K29.00 Acute gastritis without bleeding (principal); M25.551 Pain in right hip
CPT/HCPCS: 36415; 80053; 83690; 84703; 85025; 96361; 96374; 99283-25; J7030

== ENCOUNTER 2018-06-19 17:26 | Emergency (ER) | payer OTHER ==
[2018-06-19 17:34] VITALS: BP 124/68; PULSE 89; TEMP 99.4; BMI 32.4
--- NOTE | 2018-06-19 17:36 | PDOC ---
Rapid Medical Evaluation Chief Complaint: Nausea Time Seen by Provider: 06/19/18 17:32 Medical Evaluation: Allergies Allergy/AdvReac Type Severity Reaction Status Date / Time No Known Drug Allergies Allergy Verified 06/19/18 17:29 Vital Signs Temp Pulse Resp BP Pulse Ox 99.4 F 89 18 124/68 100 06/19/18 17:29 06/19/18 17:29 06/19/18 17:29 06/19/18 17:29 06/19/18 17:29 06/19/18 17:34 I have performed a brief in-person evaluation of this patient. The patient presents with a chief complaint of: evaluation for possible . feeling of nausea and vomiting. seen by another clinic and giving her conflicting results about possible . no diarrhea Pertinent physical exam findings: A&O X 3. abd: soft NT/ND I have ordered the following: BETA HCG The patient will proceed to the ED for further evaluation. Discharge Disposition - Diagnosis Nausea & vomiting Qualifiers: Vomiting type: unspecified Vomiting Intractability: non-intractable Qualified Code(s): R11.2 - Nausea with vomiting, unspecified - Referrals - Patient Instructions - Post Discharge Activity
--- NOTE | 2018-06-19 18:44 | PDOC ---
History of Present Illness - General Chief Complaint: Nausea Stated Complaint: DIZZY, VOMITING Time Seen by Provider: 06/19/18 17:32 History Source: Patient Exam Limitations: No Limitations - History of Present Illness Initial Comments: 06/19/18 18:48 pt here requesting blood test, had missed period . LMP 05/07/18 feels nausea. Past History - Past Medical History Allergies/Adverse Reactions: Allergies Allergy/AdvReac Type Severity Reaction Status Date / Time No Known Drug Allergies Allergy Verified 06/19/18 17:29 Home Medications: Ambulatory Orders NK [No Known Home Medication] 06/13/18 Anemia: No Asthma: Yes Cancer: No Cardiac Disorders: No CVA: No COPD: No DVT: No Dementia: No Diabetes: No Dialysis: No GI Disorders: No Disorders: No HTN: No Hypercholesterolemia: No Kidney Stones: No Liver Disease: No Psychiatric Problems: No Seizures: No Thyroid Disease: No Lung CA: No - Immunization History Immunization Up to Date: Yes - Suicide/Smoking/Psychosocial Hx Smoking History: Former smoker Have you smoked in the past 12 months: No Number of Cigarettes Smoked Daily: 20 If you are a former smoker, when did you quit?: 1 year Information on smoking cessation initiated: No 'Breaking Loose' booklet given: 08/13/16 Hx Alcohol Use: No Drug/Substance Use Hx: No Substance Use Type: None Hx Substance Use Treatment: No Review of Systems - Review of Systems Able to Perform ROS?: Yes Is the patient limited Occitan proficient: No Constitutional: No: Symptoms Reported HEENTM: No: Symptoms Reported Respiratory: No: Symptoms reported Cardiac (ROS): No: Symptoms Reported ABD/GI: No: Symptoms Reported : No: Symptoms Reported Musculoskeletal: No: Symptoms Reported Integumentary: No: Symptoms Reported Neurological: No: Symptoms reported *Physical Exam - Vital Signs Last Vital Signs Temp Pulse Resp BP Pulse Ox 99.4 F 89 18 124/68 100 06/19/18 17:29 06/19/18 17:29 06/19/18 17:29 06/19/18 17:29 06/19/18 17:29 - Physical Exam General Appearance: Yes: Nourished, Appropriately Dressed HEENT: positive: EOMI, YOHANNES Neck: positive: Supple. 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[address] will follow up with them copy of result given *DC/Admit/Observation/Transfer Diagnosis at time of Disposition: Positive test Nausea & vomiting Qualifiers: Vomiting type: unspecified Vomiting Intractability: non-intractable Qualified Code(s): R11.2 - Nausea with vomiting, unspecified - Discharge Dispostion Disposition: HOME Condition at time of disposition: Fair - Referrals Referrals: ON STAFF,NOT [Primary Care Provider] - - Patient Instructions Additional Instructions: 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
== END 2018-06-19 19:39 | disposition home or self-care (01) ==
LOC: JERFT 17:26
DX: Z32.01 Encounter for pregnancy test, result positive (principal)
CPT/HCPCS: 36415; 84702; 99281-25

== ENCOUNTER 2018-07-13 17:04 | Emergency (ER) | payer OTHER ==
[2018-07-13 17:17] VITALS: TEMP 97.9; BMI 31.3
[2018-07-13] MEDS ORDERED: SODIUM CHLORIDE 1,000 ML IV ONE (17:19)
--- NOTE | 2018-07-13 17:20 | PDOC ---
Rapid Medical Evaluation Chief Complaint: Nausea/Vomiting Time Seen by Provider: 07/13/18 17:14 Medical Evaluation: Allergies Allergy/AdvReac Type Severity Reaction Status Date / Time No Known Drug Allergies Allergy Verified 06/19/18 17:29 07/13/18 17:15 I have performed a brief in-person evaluation of this patient. The patient presents with a chief complaint of: Sept 6, Grav6, para 3, Sab2 , + 1`0weeks preg with N/V x 2 weeks. Unabel to tolerate fluids x 2-3 days. No vag bleeding Pertinent physical exam findings: pale, mild abd pain. I have ordered the following: CbC, bHCG, iv with NormaL Saline 1000cc bolus The patient will proceed to the ED for further evaluation. 07/13/18 17:17
[2018-07-13 18:05] LABS: BASO % 0.4 % (0-2.0); EOS % 1.9 % (0-4.5); HEMATOCRIT 40.4 % (32.4-45.2); HEMOGLOBIN 13.9 GM/dL (10.7-15.3); LYMPH % 25.4 % (8-40); MCH 29.4 pg (25.7-33.7); MCHC 34.3 g/dl (32.0-36.0); MEAN CELL VOLUME 85.8 fl (80-96); MEAN PLT VOLUME 8.9 fl (7.5-11.1); MONO % 5.9 % (3.8-10.2); NEUT % 66.4 % (42.8-82.8); PLATELET COUNT 228 K/MM3 (134-434); RBC 4.71 M/mm3 (3.60-5.2); RDW 13.4 % (11.6-15.6); WHITE BLOOD COUNT 8.2 K/mm3 (4.0-10.0)
[2018-07-13] MEDS ORDERED: SODIUM CHLORIDE 1,000 ML IV STA (19:26)
[2018-07-13] MEDS ORDERED: FAMOTIDINE 20 MG/50 ML IVPB 20 MG/50 ML MG IVPB ONE ×2 (19:26→19:30)
[2018-07-13] MEDS ORDERED: ACETAMINOPHEN 1000 MG/100 ML VIAL (NON FORMULARY) IVPB ONE (19:26)
[2018-07-13] MEDS ORDERED: ONDANSETRON 4 MG/2 ML VIAL IVPB ONE (19:26)
[2018-07-13] MEDS ORDERED: ONDANSETRON 4 MG/2 ML VIAL ONE (19:30)
[2018-07-13] MEDS ORDERED: ACETAMINOPHEN INJECTION 100 ML IVPB ONE (19:30)
--- NOTE | 2018-07-13 19:40 | PDOC ---
Attending Attestation - HPI HPI: 07/13/18 20:29 Ms Bingham is a 28 yo F presenting to the ER with nausea and vomiting. Patient reports she has been unable to tolerate PO intake. Patient is concerned about her as she has a tendency to have miscarriages. Patient has been seen by Dr. Perkins in the past, but has not seen an SCREEDMAN/LABORER for this yet. Last menstrual period was on May 07. Patient endorses chills but denies any fevers. The patient denies chest pain, shortness of breath, headache and dizziness. Denies fever, diarrhea and constipation. Denies dysuria, frequency, urgency and hematuria. Allergies: NKA Past surgical history: None reported. Social history: No reported alcohol, drug or cigarette use. <Jeanie Rojo - Last Filed: 07/13/18 20:29> - Resident Resident Name: Shona Butt - ED Attending Attestation I have performed the following: I have examined & evaluated the patient, The case was reviewed & discussed with the resident, I agree w/resident's findings & plan, Exceptions are as noted - HPI HPI: 07/13/18 19:39 Ms Bingham is a 28 yo F presenting to the ER with nausea and vomiting She is very concerned because every other results in a miscarriage She is very concerned about this No abd pain (+) nausea (+) vomiting No fevers or chills - Physicial Exam PE: 07/13/18 19:40 GENERAL: The patient is in no acute distress, pt reports that she is still nauseous. ENT: Ears normal, nares patent, oropharynx clear without exudates. Dry mucous membranes. LUNGS: Breath sounds equal, clear to auscultation bilaterally. No wheezes, and no crackles. HEART:Regular rate and rhythm, normal S1 and S2 without murmur, rub or gallop. ABDOMEN: Soft, nontender EXTREMITIES: Normal range of motion NEUROLOGICAL: Cranial nerves II through XII grossly intact. Normal speech. No focal neurological deficits. MUSCULOSKELETAL: Back non-tender to palpation, no CVA tenderness SKIN: Warm, Dry, normal turgor, no rashes or lesions noted. 07/13/18 20:34 - Medical Decision Making 07/13/18 20:34 28 yo F presenting for management of hyperemesis, she has not seen an cool roofing installer at this point No abd pain No vaginal bleeding No fevers or chills 07/13/18 20:36 Laboratory Tests 07/13/18 07/13/18 17:39 17:39 WBC 8.2 Hgb 13.9 Hct 40.4 Plt Count 228 Beta HCG, Quant 69898.7 07/13/18 20:36 Laboratory Tests 03/11/14 08:40 Blood Type A POSITIVE Pending CMP Pending US Pt is still nauseous Will give Reglan Continue IV fluids Re assess 07/13/18 22:08 UA pending Will send Will plan to discharge to home Clinical Impression: Hyperemesis, initial presentation 07/13/18 22:26 Pt states she does not want to stay in the ER to give a urine sample Pt asked to follow up with manager gyn <Sybil Grossman - Last Filed: 07/14/18 20:59> *DC/Admit/Observation/Transfer <Jeanie Rojo - Last Filed: 07/13/18 20:29> - Discharge Dispostion Decision to Admit order: No <Sybil Grossman - Last Filed: 07/14/18 20:59> Diagnosis at time of Disposition: Hyperemesis - Discharge Dispostion Disposition: HOME Condition at time of disposition: Stable - Prescriptions Prescriptions: Metoclopramide HCl [Reglan] 5 mg PO TID PRN #30 tablet PRN Reason: nausea and vomiting Vit No.124/Iron/Folic [ Vitamin Tablet] 1 each PO DAILY #60 tablet - Referrals Referrals: Levi Desouza MD [Staff Physician] - - Patient Instructions Printed Discharge Instructions: DI for Hyperemesis Gravidarum Additional Instructions: Ms Bingham Thank you for coming in to the ER today Please take Reglan for the nausea as prescribed If you get ANY twitching or involuntary movements, please discontinue the medication and come to the ER for assessment Please be sure to follow up with an cool roofing installer If you do not have one, you can follow up with Dr. Desouza Please follow up with the cool roofing installer for evaluation of your urine for infection Return to the ER for any other concerns or complaints - Post Discharge Activity Forms/Work/School Notes: Back to Work
--- NOTE | 2018-07-13 19:54 | PDOC ---
History of Present Illness - General Chief Complaint: Nausea/Vomiting Stated Complaint: NAUSEA, DIZZINESS Time Seen by Provider: 07/13/18 17:14 History Source: Patient - History of Present Illness Initial Comments: 07/13/18 19:46 28F G6 T3A2L3, reportedly 2.5 months (however has never had an ultrasound done for this ) w/ pmhx of scoliosis presents with 7 day history of nausea and vomiting. Pt has had multiple non-bloody vomiting episodes over the past week that started suddenly. She states she has had poor PO intake over the past week due to her symptoms with minimal urine output. She denies taking any meds at home. Pt states with her past pregnancies she has symptoms of nausea and vomiting, but nothing as bad as her current symptoms. Pt also reports associated back pain that started a couple of days ago. She says that she has an appetite, but does not want to eat because of the nausea as it will cause her to vomit. Of note, she was seen in this ED on 06/14/18 for complaints of R hip pain and on 06/19/18 for nausea and vomiting. She states that during her most recent visit, she was told she was , but has not followed up with her INSULATION FOREMAN, Dr. Rodriguez as advised upon her last discharge. PMHx: scoliosis, hx of 2 miscarriages PShx: Denies FHx: DM and HTN, unspecified Social: Former smoker, quit 2 years ago, used to smoke 1 PPD x8 years; Denies alcohol and rec drug use. Currently unemployed. Lives at home with and 3 children in apt. Past History - Past Medical History Allergies/Adverse Reactions: Allergies Allergy/AdvReac Type Severity Reaction Status Date / Time No Known Drug Allergies Allergy Verified 06/19/18 17:29 Home Medications: Ambulatory Orders Metoclopramide HCl [Reglan] 5 mg PO TID PRN #30 tablet 07/13/18 Vit No.124/Iron/Folic [ Vitamin Tablet] 1 each PO DAILY #60 tablet 07/13/18 Anemia: No Asthma: Yes Cancer: No Cardiac Disorders: No CVA: No COPD: No DVT: No Dementia: No Diabetes: No Dialysis: No GI Disorders: No Disorders: No HTN: No Hypercholesterolemia: No Kidney Stones: No Liver Disease: No Psychiatric Problems: No Seizures: No Thyroid Disease: No Lung CA: No - Immunization History Immunization Up to Date: Yes - Suicide/Smoking/Psychosocial Hx Smoking History: Former smoker Have you smoked in the past 12 months: No Number of Cigarettes Smoked Daily: 20 If you are a former smoker, when did you quit?: 1 year Information on smoking cessation initiated: No 'Breaking Loose' booklet given: 08/13/16 Hx Alcohol Use: No Drug/Substance Use Hx: No Substance Use Type: None Hx Substance Use Treatment: No Review of Systems - Review of Systems Constitutional: No: Chills, Fever, Loss of Appetite HEENTM: No: Recent change in vision, Nose Congestion Respiratory: No: Cough, Shortness of Breath, SOB at Rest, Productive cough Cardiac (ROS): No: Chest Pain, Chest Tightness ABD/GI: Yes: Nausea, Vomiting. No: Constipated, Diarrhea : No: Dysuria, Hematuria Musculoskeletal: Yes: Back Pain Neurological: Yes: Headache, Dizziness *Physical Exam - Vital Signs Last Vital Signs Temp Pulse Resp BP Pulse Ox 97.9 F 96 H 16 105/57 L 100 07/13/18 17:15 07/13/18 17:15 07/13/18 17:15 07/13/18 17:15 07/13/18 17:15 - Physical Exam Comments: 07/13/18 20:24 GEN: NAD. AAOx3. Normal speech. Resting comfortably. HEENT: AT/NC. EOMI. YOHANNES. Moist mucus membranes. Neck: Supple, no LAD/JVD. Lungs: CTA B/L. No wheezes noted. Symmetric chest rise. Heart: RRR. Normal S1, S2. Abd: Soft, ND. Mild epigastric tenderness to palpation. +BS in all 4 Q's. MSK: No peripheral edema. 5/5 muscle strength in b/l u/l extremities. Point tenderness in R lateral hip. Neuro: CN II-XII intact. Facial symmetry noted. ED Treatment Course - LABORATORY CBC & Chemistry Diagram: 07/13/18 17:39 07/13/18 20:34 - ADDITIONAL ORDERS Additional order review: Laboratory Results 07/13/18 17:39 Beta HCG, Quant 15370.7 07/13/18 17:39 RBC 4.71 MCV 85.8 MCHC 34.3 RDW 13.4 MPV 8.9 Neutrophils % 66.4 D Lymphocytes % 25.4 D Monocytes % 5.9 Eosinophils % 1.9 Basophils % 0.4 - RADIOLOGY Radiology Studies Ordered: Category Date Time Status <14WKS US [US] Stat Ultrasound 07/13/18 19:38 Ordered - Medications Given in the ED: ED Medications Discontinued Medications Generic Name Dose Route Start Last Admin Trade Name Freq PRN Reason Stop Dose Admin Acetaminophen 1,000 mg 07/13/18 19:26 07/13/18 19:43 Ofirmev Injection - IVPB 07/13/18 19:27 1,000 mg ONCE ONE Administration Sodium Chloride 1,000 mls @ 1,000 mls/hr 07/13/18 17:19 07/13/18 17:44 Normal Saline - IV 07/13/18 18:18 1,000 mls/hr .Q1H ONE Administration Ondansetron HCl 4 mg 07/13/18 19:26 07/13/18 19:35 Zofran Injection IVPB 07/13/18 19:27 4 mg ONCE ONE Administration Medical Decision Making - Medical Decision Making 07/13/18 20:28 28F G6 T3A2L3, +bHCG, no ultrasound currently done presents with 7 day history of nausea and vomiting. -Pt has not seen a INSULATION FOREMAN for this nor has gotten an ultrasound to determine IUP. -Will order CBC/CMP, U/A, T&S, u/s. -For her symptoms, will give IV Tylenol, Famotidine, IV Zofran, NS and will re- assess pt's symptoms 07/13/18 20:30 - U/s showed single viable intrauterine gestation at approximately 6 weeks 6 days; 2.4 cm R ovarian cyst containing a small amount of internal debris. -Pt showed symptomatic improvement during ED visit. Pt to follow up with INSULATION FOREMAN, has seen Dr. Sarmiento for prior pregnancies. Given referral to see Dr. Desouza as well if she needs an earlier appointment. Prescribed Reglan for nausea as needed. DC to home. Case discussed with Dr. Grossman (ED attending). Shona Butt, DO - PGY1 *DC/Admit/Observation/Transfer Diagnosis at time of Disposition: Hyperemesis - Discharge Dispostion Disposition: HOME Condition at time of disposition: Stable - Prescriptions Prescriptions: Metoclopramide HCl [Reglan] 5 mg PO TID PRN #30 tablet PRN Reason: nausea and vomiting Vit No.124/Iron/Folic [ Vitamin Tablet] 1 each PO DAILY #60 tablet - Referrals Referrals: Levi Desouza MD [Staff Physician] - - Patient Instructions Printed Discharge Instructions: DI for Hyperemesis Gravidarum Additional Instructions: Ms Bingham Thank you for coming in to the ER today Please take Reglan for the nausea as prescribed If you get ANY twitching or involuntary movements, please discontinue the medication and come to the ER for assessment Please be sure to follow up with an buhr mill operator If you do not have one, you can follow up with Dr. Desouza Please follow up with the buhr mill operator for evaluation of your urine for infection Return to the ER for any other concerns or complaints - Post Discharge Activity Forms/Work/School Notes: Back to Work
[2018-07-13] MEDS ORDERED: METOCLOPRAMIDE HCL INJECTION 10 MG/2 ML VIAL IVPUSH ONE (20:17)
[2018-07-13] MEDS ORDERED: METOCLOPRAMIDE HCL INJECTION 10 MG/2 ML VIAL ONE (20:41)
[2018-07-13 21:15] LABS: ALK PHOS 48 U/L (45-117); ANION GAP 12 MMOL/L (8-16); BILIRUBIN,TOTAL 0.4 mg/dL (0.2-1); BLOOD UREA NITROGEN 7 mg/dL (7-18); CALCIUM 7.7 mg/dL (8.5-10.1); CHLORIDE 120 mmol/L (98-107); CO2 23 mmol/L (21-32); CREATININE 0.3 mg/dL (0.55-1.3); GLUCOSE,RANDOM 76 mg/dL (74-106); POTASSIUM 4.5 mmol/L (3.5-5.1); SGOT/AST 8 U/L (15-37); SGPT/ALT 18 U/L (13-61); SODIUM 154 mmol/L (136-145)
[2018-07-13 22:37] VITALS: BP 112/60; PULSE 84
== END 2018-07-13 22:37 | disposition home or self-care (01) ==
LOC: JER 17:04
PROC: 3E0337Z Introduction of Electrolytic and Water Balance Substance into Peripheral Vein, Percutaneous Approach (ICD-10-PCS; principal; 2018-07-13)
PROC: 3E033GC Introduction of Other Therapeutic Substance into Peripheral Vein, Percutaneous Approach (ICD-10-PCS; 2018-07-13)
PROC: 3E033GC Introduction of Other Therapeutic Substance into Peripheral Vein, Percutaneous Approach (ICD-10-PCS; 2018-07-13)
PROC: 3E033GC Introduction of Other Therapeutic Substance into Peripheral Vein, Percutaneous Approach (ICD-10-PCS; 2018-07-13)
PROC: 3E033NZ Introduction of Analgesics, Hypnotics, Sedatives into Peripheral Vein, Percutaneous Approach (ICD-10-PCS; 2018-07-13)
DX: O26.891 Other specified pregnancy related conditions, first trimester (principal); O21.0 Mild hyperemesis gravidarum; O34.81 Maternal care for other abnormalities of pelvic organs, first trimester; N83.291 Other ovarian cyst, right side; Z3A.01 Less than 8 weeks gestation of pregnancy
CPT/HCPCS: 36415; 76801-TC; 80053; 84702; 85025; 86850; 86900; 86901; 96361; 96365; 96375; 99283-25; J0131; J7030

== ENCOUNTER 2018-07-21 21:44 | Emergency (ER) | payer OTHER ==
[2018-07-21 21:52] VITALS: BP 97/49; PULSE 82; TEMP 98; BMI 31.4
--- NOTE | 2018-07-21 22:59 | PDOC ---
History of Present Illness - General Chief Complaint: Nausea/Vomiting Stated Complaint: 8 WEEKS WITH Cold Symptoms Time Seen by Provider: 07/21/18 22:27 - History of Present Illness Initial Comments: 07/21/18 22:40 28 yo [id number], at 7 wga,confirmed on TVUS (07/13/18), unknown LMP with no significant pmh who p/w vomiting. Pt. reports multiple episodes of non bilious, non bloody emesis through despite Zofran 8 mg today. Also endorses worsening, pressure-type, lower back pain today, unremitting, with new onset radiation down back of both thighs. Worse with standing. + crampy, lower left sided lower abdominal pain beginning today, at rest with no identifiable triggers. Pain now resolved with Tylenol pills x 3. Decreased PO intake and appetite through . Last BM x 1 week. Denies OTC bowel regimen. + Chronic epigatsric abdominal pain, worse with . Recent ED encounter [facility] for similar presentation, with discharge and advised to f/u with [facility]. TVUS with viable IUP 6w6d. Patient denies F/C, cough, wheezing, CP, SOB, urinary complaints, urinary retention, hematuria, BPR, vaginal bleeding, diarrhea, weakness. PMHx: as noted above ROS: as noted SHx: Denies Etoh, IVDA. tobacco cessation x 2 years Allergies: NKDA Past History - Past Medical History Allergies/Adverse Reactions: Allergies Allergy/AdvReac Type Severity Reaction Status Date / Time No Known Drug Allergies Allergy Verified 07/21/18 21:52 Home Medications: Ambulatory Orders Metoclopramide HCl [Reglan] 5 mg PO TID PRN #30 tablet 07/13/18 Vit No.124/Iron/Folic [ Vitamin Tablet] 1 each PO DAILY #60 tablet 07/13/18 Anemia: No Asthma: Yes Cancer: No Cardiac Disorders: No CVA: No COPD: No DVT: No Dementia: No Diabetes: No Dialysis: No GI Disorders: No Disorders: No HTN: No Hypercholesterolemia: No Kidney Stones: No Liver Disease: No Psychiatric Problems: No Seizures: No Thyroid Disease: No Lung CA: No - Immunization History Immunization Up to Date: Yes - Suicide/Smoking/Psychosocial Hx Smoking History: Never smoked Have you smoked in the past 12 months: No Number of Cigarettes Smoked Daily: 20 If you are a former smoker, when did you quit?: 1 year Information on smoking cessation initiated: No 'Breaking Loose' booklet given: 08/13/16 Hx Alcohol Use: No Drug/Substance Use Hx: No Substance Use Type: None Hx Substance Use Treatment: No Review of Systems - Review of Systems Comments:: 07/21/18 23:08 GENERAL/CONSTITUTIONAL: No fever or chills. No weakness. HEAD, EYES, EARS, NOSE AND THROAT: No change in vision. No ear pain or discharge. No sore throat. CARDIOVASCULAR: No chest pain or shortness of breath RESPIRATORY: No cough, wheezing, or hemoptysis. GASTROINTESTINAL: + nausea, vomiting, constipation. GENITOURINARY: No dysuria, frequency, or change in urination. MUSCULOSKELETAL: + Back pain. No joint or muscle swelling or pain. No neck pain. SKIN: No rash NEUROLOGIC: No headache, vertigo, loss of consciousness, or change in strength/ sensation. ENDOCRINE: No increased thirst. HEMATOLOGIC/LYMPHATIC: No anemia, easy bleeding, or history of blood clots. ALLERGIC/IMMUNOLOGIC: No hives or skin allergy. *Physical Exam - Vital Signs Last Vital Signs Temp Pulse Resp BP Pulse Ox 98.0 F 82 18 97/49 L 99 07/21/18 21:50 07/21/18 21:50 07/21/18 21:50 07/21/18 21:50 07/21/18 21:50 - Physical Exam Comments: 07/21/18 23:10 GENERAL: Awake, alert, and fully oriented, in no acute distress HEAD: No signs of trauma, normocephalic, atraumatic EYES: PERRLA, EOMI, sclera anicteric, conjunctiva clear ENT: + Dry mucous membranes. Hearing grossly normal, nares patent, oropharynx clear without exudates. NECK: Normal ROM, supple, no lymphadenopathy, JVD, or masses LUNGS: No distress, speaks full sentences, clear to auscultation bilaterally HEART: Regular rate and rhythm, normal S1 and S2, no murmurs, rubs or gallops, peripheral pulses normal and equal bilaterally. ABDOMEN: + LLQ ttp, and epigastirc ttp. Soft, nontender, normoactive bowel sounds. No guarding, no rebound. No masses. Neg CVA ttp. EXTREMITIES : Normal inspection, Normal range of motion, no edema. No clubbing or cyanosis. BACK: + Lumbar and sacral paraspinal ttp, with absent stepoff. Neg skin change. NEUROLOGICAL: Cranial nerves II through XII grossly intact. Normal speech, normal gait, no focal sensorimotor deficits SKIN: Warm, Dry, normal turgor, no rashes or lesions noted Medical Decision Making - Medical Decision Making 07/21/18 22:59 28 yo [id number], at 7 wga,confirmed on TVUS (07/13/18) LMP unknown with no significant pmh who p/w vomiting. BP 97/49, vitals otherwise wnl, AF, A&Ox3. + LLQ abdominal ttp. Absent vaginal bleeding Low suspicion threatened , ectopic preg, JEVON, or placenta previa. Low suspicon diveritculitis, appendicitis , colitis, neprholithaisis. Will consider cysitis Ed Course: NS 2 L , Reglan, Pepcid CBC,CMP, HCG, UA, Lipase 07/21/18 23:34 CBC: Unremarkable *DC/Admit/Observation/Transfer Diagnosis at time of Disposition: Hyperemesis gravidarum before end of 22 week gestation, dehydration - Discharge Dispostion Condition at time of disposition: Stable Decision to Admit order: No - Referrals - Patient Instructions Printed Discharge Instructions: DI for Hyperemesis Gravidarum Additional Instructions: Please return to the emergency department with any new or worsening symptoms or concerns. Please follow up with your primary care or [facility] physician within 72 hours. - Post Discharge Activity - Attestations Physician Attestion: 07/21/18 23:17 I attest to the information provided in this note.
[2018-07-21] MEDS ORDERED: FAMOTIDINE 20 MG/50 ML IVPB 20 MG/50 ML MG IVPB ONE (23:10)
[2018-07-21] MEDS ORDERED: SODIUM CHLORIDE 1,000 ML IV STA ×2 (23:10→23:15)
[2018-07-21] MEDS ORDERED: METOCLOPRAMIDE HCL INJECTION 10 MG/2 ML VIAL IVPUSH ONE (23:10)
--- NOTE | 2018-07-21 23:21 | PDOC ---
Attending Attestation - Resident Resident Name: Sumit Kerr - ED Attending Attestation I have performed the following: I have examined & evaluated the patient, The case was reviewed & discussed with the resident, I agree w/resident's findings & plan, Exceptions are as noted - Medical Decision Making 07/21/18 23:19 A portion of this note was documented by scribe services under my direction. I have reviewed the details of the note, within reason, and agree with the documentation with the following case summary and management plan written by me. Patient treated in the ED. Nursing notes are reviewed and incorporated into the medical decision-making. Vital signs reviewed. Peripheral IV access obtained by the nurse, laboratory studies are drawn and sent, reviewed and interpreted by myself. Vital Signs Temp Pulse Resp BP Pulse Ox 98.0 F 82 18 97/49 L 99 07/21/18 21:50 07/21/18 21:50 07/21/18 21:50 07/21/18 21:50 07/21/18 21:50 48-year-old female with no past medical history, , approximately 7 weeks presents with nausea vomiting. Patient was here approximately 8 days ago and was discharged with diagnoses hyperemesis gravidarum. Patient had an old shot performed which time she did of viable single intrauterine . Patient denies any vaginal bleeding now. Reported she's been having persistent nausea and vomiting and some abdominal cramping. No fevers or chills. Patient's history and physicals consistent with hyperemesis gravidarum. There is no evidence of vaginal bleeding. No abdominal tenderness to my exam. We'll give IV fluids and give IV Reglan, as patient is ready taking Zofran at home. Reassess. 07/22/18 00:50 The patient reports feeling significantly better and would like to go home. Will give her a prescription of zofran and pepcid. Return precautions given. I discussed the physical exam findings, ancillary test results and final diagnoses with the patient. I answered all of the patient's questions. The patient was satisfied with the care received and felt comfortable with the discharge plan and treatment plan. The patient will call their primary care physician within 24 hours to arrange follow-up and will return to the Emergency Department with any new, persistant or worsening symptoms. <Matteo Gregory - Last Filed: 07/22/18 00:50> - HPI HPI: 07/22/18 00:53 The patient is a 28 year old female([id number]), 7 weeks with no significant PMH of who presents to the emergency department with vomiting since earlier today. The patient describes her vomiting episodes as non bilious, non bloody. The patient reports associated worsening, pressure-type, lower back pain today, unremitting, with new onset radiating down back of both thighs. She states that her back pain is worsened with standing . she reports taking tylenol earlier today with some relief. The patient was seen in the ed for similar complaints. She denies any other symptoms or complaints. - Physicial Exam PE: 07/22/18 00:53 GENERAL: Awake, alert, and fully oriented, in no acute distress HEAD: No signs of trauma EYES: PERRLA, EOMI, sclera anicteric, conjunctiva clear ENT: Auricles normal inspection, hearing grossly normal, nares patent, Moist mucosa NECK: Normal ROM, supple, no lymphadenopathy, JVD, or masses LUNGS: Breath sounds equal, clear to auscultation bilaterally. No wheezes, and no crackles HEART: Regular rate and rhythm, normal S1 and S2, no murmurs, rubs or gallops ABDOMEN: obese. Soft, nontender No guarding, no rebound. No masses EXTREMITIES: Normal range of motion, no edema. No clubbing or cyanosis. No cords, erythema, or tenderness NEUROLOGICAL: Cranial nerves II through XII grossly intact. Normal speech, normal gait SKIN: Warm, Dry, normal turgor, no rashes or lesions noted. Documentation prepared by Juan Carlos Baldwin, acting as medical review coordinator for Matteo Gregory MD. <Juan Carlos Baldwin - Last Filed: 07/22/18 00:54> *DC/Admit/Observation/Transfer <Matteo Gregory - Last Filed: 07/22/18 00:50> <Juan Carlos Baldwin - Last Filed: 07/22/18 00:54> Diagnosis at time of Disposition: Hyperemesis gravidarum before end of 22 week gestation, dehydration - Discharge Dispostion Disposition: HOME Condition at time of disposition: Stable - Prescriptions Prescriptions: Famotidine [Pepcid] 20 mg PO BID PRN #20 tablet PRN Reason: GERD Metoclopramide HCl [Reglan] 10 mg PO Q6H PRN #20 tablet PRN Reason: Nausea - Referrals Referrals: Levi Desouza MD [Staff Physician] - - Patient Instructions Printed Discharge Instructions: DI for Hyperemesis Gravidarum Additional Instructions: Please return to the emergency department with any new or worsening symptoms or concerns. Please follow up with your primary care or [facility] physician within 72 hours. Please drink plenty of fluids and rest. Take 20 mg pepcid every 12 hours as needed for acid reflux. Take 10 mg reglan every 6 to 8 hours as needed for nausea. These medications are safe for . Follow up with your [facility]. If you feel very dehydrated or have persistent vomiting, please return to the ER. - Post Discharge Activity
[2018-07-22] MEDS ORDERED: FAMOTIDINE 20 MG/50 ML IVPB 20 MG/50 ML MG IVPB ONE (00:15)
[2018-07-22] MEDS ORDERED: METOCLOPRAMIDE HCL INJECTION 10 MG/2 ML VIAL ONE (00:15)
== END 2018-07-22 06:41 | disposition home or self-care (01) ==
LOC: JER 21:44
PROC: 3E0337Z Introduction of Electrolytic and Water Balance Substance into Peripheral Vein, Percutaneous Approach (ICD-10-PCS; principal; 2018-07-21)
PROC: 3E033GC Introduction of Other Therapeutic Substance into Peripheral Vein, Percutaneous Approach (ICD-10-PCS; 2018-07-21)
PROC: 3E033GC Introduction of Other Therapeutic Substance into Peripheral Vein, Percutaneous Approach (ICD-10-PCS; 2018-07-21)
DX: O26.891 Other specified pregnancy related conditions, first trimester (principal); O21.1 Hyperemesis gravidarum with metabolic disturbance; Z3A.01 Less than 8 weeks gestation of pregnancy
CPT/HCPCS: 96361; 96365; 96375; 99282-25; J7030

== ENCOUNTER 2018-07-29 21:14 | Emergency (ER) | payer OTHER ==
[2018-07-29 21:33] VITALS: BP 125/73; PULSE 97; TEMP 98.2; BMI 31.4
--- NOTE | 2018-07-29 21:33 | PDOC ---
Rapid Medical Evaluation Time Seen by Provider: 07/29/18 21:30 Medical Evaluation: Allergies Allergy/AdvReac Type Severity Reaction Status Date / Time No Known Drug Allergies Allergy Verified 07/21/18 21:52 07/29/18 21:32 I have performed a brief in-person evaluation of this patient. The patient presents with a chief complaint of: constipation. Last BM~1 week ago Pertinent physical exam findings: +BS. Abd SNTND. I have ordered the following: tylenol, urine The patient will proceed to the ED for further evaluation. Discharge Disposition - Diagnosis Constipation - Referrals - Patient Instructions - Post Discharge Activity
[2018-07-29] MEDS ORDERED: ACETAMINOPHEN 500 MG TABLET (FP) PO ONE (21:34)
== END 2018-07-29 22:10 | disposition left against medical advice (07) ==
LOC: JER 21:14
DX: O26.891 Other specified pregnancy related conditions, first trimester (principal); K59.00 Constipation, unspecified; Z3A.09 9 weeks gestation of pregnancy
CPT/HCPCS: 99281-25

== ENCOUNTER 2019-02-17 05:30 | Inpatient (IN) | payer OTHER ==
[2019-02-17] MEDS ORDERED: AMPICILLIN SODIUM 2 GM VIAL ONE (06:13)
[2019-02-17 06:40] LABS: BASO % 0.4 % (0-2.0); EOS % 0.8 % (0-4.5); HEMATOCRIT 27.7 % (32.4-45.2); HEMOGLOBIN 9.2 GM/dL (10.7-15.3); LYMPH % 20.8 % (8-40); MCH 28.1 pg (25.7-33.7); MCHC 33.2 g/dl (32.0-36.0); MEAN CELL VOLUME 84.8 fl (80-96); MEAN PLT VOLUME 8.7 fl (7.5-11.1); MONO % 5.3 % (3.8-10.2); NEUT % 72.7 % (42.8-82.8); PLATELET COUNT 243 K/MM3 (134-434); RBC 3.27 M/mm3 (3.60-5.2); RDW 16.8 % (11.6-15.6); WHITE BLOOD COUNT 9.4 K/mm3 (4.0-10.0)
[2019-02-17] MEDS ORDERED: AMPICILLIN - 2 GM in SODIUM CHLORIDE 100 ML IVPB ONE ×2 (06:45→07:50)
[2019-02-17] MEDS ORDERED: ELECTROLYTE-148 SOLN 1,000 ML IV SCH (06:45)
[2019-02-17 06:46] LABS: INR 0.89 (0.83-1.09); PROTHROMBIN TIME (PATIENT) 10.5 SEC (9.7-13.0)
[2019-02-17 06:49] LABS: ACTIVATED PTT 22.7 SECONDS (25.2-36.5)
[2019-02-17 06:56] LABS: CALCIUM 8.5 mg/dL (8.5-10.1); CREATININE 0.5 mg/dL (0.55-1.3); POTASSIUM 4.1 mmol/L (3.5-5.1)
[2019-02-17] MEDS ORDERED: FENTANYL/BUPIVACAINE/NS/PF - PCEA - 50 ML DISP.SYRIN EP ONE (07:38)
[2019-02-17] MEDS ORDERED: OXYTOCIN 30 UNITS in 0.9% NS 30 UNIT/500 ML INFUS.BAG IVPB ONE (07:50)
[2019-02-17] MEDS ORDERED: OXYTOCIN 30 UNITS in 0.9% NS 30 UNIT/500 ML INFUS.BAG IVPB SCH (08:00)
[2019-02-17] MEDS ORDERED: NALOXONE HCL 0.4 MG/ML VIAL IVPUSH PRN (08:07)
[2019-02-17] MEDS ORDERED: FENTANYL/BUPIVACAINE/NS/PF - PCEA - 50 ML DISP.SYRIN EP SCH (08:15)
--- NOTE | 2019-02-17 08:50 | HP ---
Past Medical History - Admission Chief Complaint: In labor. [place]. History of Present Illness: Uneventful . 38 weeks 1 day. GBS pos. History Source: Patient (Hx of failed epidurals in all previous deliveries. Scoliosis. Consulted antepartum by Dr. Souza.) Limitations to Obtaining History: No Limitations - Past Medical History Pulmonary: Yes: Asthma (last attack unknown,no recall of meds) ...: 6 ...Para: 3 ...Term: 3 ...: 0 ...Spon : 2 ...Induced : 0 ...Multiple Gestation: 0 ... Weeks Gestation by Dates: 38.1 ...EDC by Dates: 03/02/19 Heme/Onc: Yes: Anemia Musculoskeletal: Yes: Other (h/o scoliosis) - Smoking History Smoking history: Never smoked Have you smoked in the past 12 months: No Aproximately how many cigarettes per day: 20 If you are a former smoker, when did you quit?: 1 year - Alcohol/Substance Use Hx Alcohol Use: No - Social History Usual Living Arrangement: Yes: With Spouse Home Medications - Allergies Allergies/Adverse Reactions: Allergies Allergy/AdvReac Type Severity Reaction Status Date / Time No Known Drug Allergies Allergy Verified 02/17/19 05:57 - Home Medications Home Medications: Ambulatory Orders Famotidine [Pepcid] 20 mg PO BID PRN #20 tablet 07/22/18 Physical Exam - Maternity Vital Signs: Vital Signs Temperature 98.2 F 02/17/19 08:03 Pulse Rate 92 H 02/17/19 06:06 Respiratory Rate 20 02/17/19 06:06 Blood Pressure 118/77 02/17/19 06:06 O2 Sat by Pulse Oximetry (%) - Abdominal Exam/OB Number of Fetuses: Single Presentation: Vertex Contractions: Yes Regularity: Regular Intensity: Mild Monitor Mode: External Category: I Accelerations: Uniform Decelerations: None - Vaginal Exam/OB Vaginal Bleediing: No Dilatation (cm): 3 cm Effacement (%): 80% Amniotic Membrane Status: Intact Presentation: Vertex/Position Station: -1 (Arom, clear) - Physical Exam Musculoskeletal: Yes: WNL Extremities: Yes: WNL Edema: No Integumentary: Yes: WNL Deep Tendon Reflex Grade: Normal +2 ...Motor Strength: WNL Psychiatric: Yes: WNL - Labs Lab Results: CBC, BMP 02/17/19 05:15 02/17/19 05:15 Assessment/Plan IUP at term in labor AROM, regional block. Vaginal delivery expected
[2019-02-17] MEDS ORDERED: AMPICILLIN SODIUM 1 GM VIAL ONE (09:07)
[2019-02-17] MEDS ORDERED: LIDOCAINE HCL 1% PRESERVATIVE FREE - 30ML VIAL ONE (09:07)
[2019-02-17] MEDS ORDERED: OXYTOCIN 20 UNITS in 0.9% NS 20 UNIT/1,000 ML INFUS.BAG IV ONE ×2 (09:08→10:40)
[2019-02-17] MEDS ORDERED: METHYLERGONOVINE MALEATE 0.2 MG/1 ML AMP IM PRN ×2 (09:28→09:43)
[2019-02-17] MEDS ORDERED: BENZOCAINE 28 GM HEMORRHOIDAL OINTMENT TP PRN ×2 (09:28→09:43)
[2019-02-17] MEDS ORDERED: BISACODYL 10 MG SUPP.RECT RC PRN ×2 (09:28→09:43)
[2019-02-17] MEDS ORDERED: BENZOCAINE 20% 57 GM BOTTLE TP PRN ×2 (09:28→09:43)
[2019-02-17] MEDS ORDERED: WITCH HAZEL 50% (TUCKS) 40 PAD/JAR PAD TP PRN ×2 (09:28→09:43)
[2019-02-17] MEDS ORDERED: IBUPROFEN 600 MG TABLET (FP) PO PRN (09:28)
--- NOTE | 2019-02-17 09:34 | PN ---
Progress Note, Labor Vaginal Exam #1 Labor Exam Date: 02/17/19 Heart Rate (range): 140 Dilatation: 3 Effacement (%): 80 Amniotic Membrane Status: Bulging (arom, clear) Presentation: Vertex/Position (Combined epidural requested) Station: -2
--- NOTE | 2019-02-17 09:37 | PN ---
Progress Note, Labor Vaginal Exam #2 Labor Exam Date: 02/17/19 Labor Exam Time: 08:45 Dilatation: 7 Effacement (%): 100 Amniotic Membrane Status: Ruptured Station: -1 Vaginal Exam #3 Labor Exam Time: 09:00 Dilatation: 10 Presentation: Vertex/Position Station: +2 (Pushing Epidural is working)
--- NOTE | 2019-02-17 09:40 | PN ---
Delivery - Delivery Vaginal Delivery: Spontaneous (NVSD, Boy, Apgars 9 & 10. Patient desires circumcision. Fully discussed all risks and poss. complications. Pt. understands and consents.) Type of Anesthesia: Epidural Episiotomy/Laceration: None (Methergine im) Delivery, Single - [place] Feeding Plan Initial Plan: Exclusive throughout hospitalization
[2019-02-17] MEDS ORDERED: ACETAMINOPHEN 325 MG TABLET (FP) PO PRN (09:43)
[2019-02-17] MEDS ORDERED: OXYTOCIN 20 UNITS in 0.9% NS 20 UNIT/1,000 ML INFUS.BAG IV SCH (09:45)
[2019-02-17 10:25] VITALS: BMI 32.5
[2019-02-17] MEDS ORDERED: AMPICILLIN - 1 GM in SODIUM CHLORIDE 100 ML IVPB SCH (11:00)
[2019-02-17] MEDS ORDERED: IBUPROFEN 600 MG TABLET (FP) PO ONE ×2 (11:36→16:37)
[2019-02-17] MEDS: IBUPROFEN 600 MG TABLET (FP) PO PRN ×3 (11:45→20:28)
[2019-02-17] MEDS ORDERED: TUBERCULIN PPD 5 TU/0.1ML VIAL ID ONE ×2 (15:45)
[2019-02-17] MEDS ORDERED: ACETAMINOPHEN 325 MG TABLET (FP) ONE (16:37)
[2019-02-17] MEDS: ACETAMINOPHEN 325 MG TABLET (FP) PO PRN ×2 (16:41→20:28)
[2019-02-18] MEDS: IBUPROFEN 600 MG TABLET (FP) PO PRN ×4 (01:21→20:49)
[2019-02-18] MEDS: ACETAMINOPHEN 325 MG TABLET (FP) PO PRN ×4 (01:21→20:51)
[2019-02-18] MEDS: SENNOSIDES/DOCUSATE COMBO (SENNA PLUS) TABLET (UD) PO PRN ×2 (01:22→20:52)
[2019-02-18 06:53] LABS: BASO % 0.4 % (0-2.0); EOS % 1.9 % (0-4.5); HEMATOCRIT 25.4 % (32.4-45.2); HEMOGLOBIN 8.3 GM/dL (10.7-15.3); LYMPH % 24.2 % (8-40); MCHC 32.9 g/dl (32.0-36.0); MEAN CELL VOLUME 85.2 fl (80-96); MEAN PLT VOLUME 8.7 fl (7.5-11.1); MONO % 5.6 % (3.8-10.2); NEUT % 67.9 % (42.8-82.8); PLATELET COUNT 227 K/MM3 (134-434); RBC 2.98 M/mm3 (3.60-5.2); RDW 16.4 % (11.6-15.6); WHITE BLOOD COUNT 8.7 K/mm3 (4.0-10.0)
--- NOTE | 2019-02-18 12:55 | PN ---
Post Progress Note Post Day: 1 Type of Delivery: Vital Signs: Vital Signs Temperature 98.0 F 02/18/19 06:00 Pulse Rate 71 02/18/19 06:00 Respiratory Rate 18 02/18/19 06:00 Blood Pressure 113/72 02/18/19 06:00 O2 Sat by Pulse Oximetry (%) 100 02/17/19 09:00 Breast Exam: Yes: Soft Uterus: Yes: Fundus Firm Abdomen/GI: Yes: Abdomen soft Lochia: Yes: Rubra Lochia, amount: Moderate Extremities: Yes: Calves non-tender Perineum: Yes: Intact Activity: Ambulating (Doing well. Desires circumcision 4 her son. All fully discussed.) - Labs Labs: CBC WBC 8.7 K/mm3 (4.0-10.0) 02/18/19 06:23 RBC 2.98 M/mm3 (3.60-5.2) L 02/18/19 06:23 Hgb 8.3 GM/dL (10.7-15.3) L 02/18/19 06:23 Hct 25.4 % (32.4-45.2) L 02/18/19 06:23 MCV 85.2 fl (80-96) 02/18/19 06:23 MCH 28.0 pg (25.7-33.7) 02/18/19 06:23 MCHC 32.9 g/dl (32.0-36.0) 02/18/19 06:23 RDW 16.4 % (11.6-15.6) H 02/18/19 06:23 Plt Count 227 K/MM3 (134-434) 02/18/19 06:23 MPV 8.7 fl (7.5-11.1) 02/18/19 06:23 Absolute Neuts (auto) 5.9 K/mm3 (1.5-8.0) 02/18/19 06:23 Neutrophils % 67.9 % (42.8-82.8) 02/18/19 06:23 Lymphocytes % 24.2 % (8-40) 02/18/19 06:23 Monocytes % 5.6 % (3.8-10.2) 02/18/19 06:23 Eosinophils % 1.9 % (0-4.5) D 02/18/19 06:23 Basophils % 0.4 % (0-2.0) 02/18/19 06:23 Nucleated RBC % 0 % (0-0) 02/18/19 06:23
--- NOTE | 2019-02-18 17:36 | PN ---
Post Progress Note Type of Delivery: Vital Signs: Vital Signs Temperature 98.0 F 02/18/19 06:00 Pulse Rate 71 02/18/19 06:00 Respiratory Rate 18 02/18/19 06:00 Blood Pressure 113/72 02/18/19 06:00 O2 Sat by Pulse Oximetry (%) 100 02/17/19 09:00 Breast Exam: Yes: Engorged Uterus: Yes: Fundus Firm Abdomen/GI: Yes: Abdomen soft Lochia: Yes: Rubra Lochia, amount: Moderate Extremities: Yes: Calves non-tender Perineum: Yes: Intact (Instruction given. Discharge early in AM.) - Labs Labs: CBC WBC 8.7 K/mm3 (4.0-10.0) 02/18/19 06:23 RBC 2.98 M/mm3 (3.60-5.2) L 02/18/19 06:23 Hgb 8.3 GM/dL (10.7-15.3) L 02/18/19 06:23 Hct 25.4 % (32.4-45.2) L 02/18/19 06:23 MCV 85.2 fl (80-96) 02/18/19 06:23 MCH 28.0 pg (25.7-33.7) 02/18/19 06:23 MCHC 32.9 g/dl (32.0-36.0) 02/18/19 06:23 RDW 16.4 % (11.6-15.6) H 02/18/19 06:23 Plt Count 227 K/MM3 (134-434) 02/18/19 06:23 MPV 8.7 fl (7.5-11.1) 02/18/19 06:23 Absolute Neuts (auto) 5.9 K/mm3 (1.5-8.0) 02/18/19 06:23 Neutrophils % 67.9 % (42.8-82.8) 02/18/19 06:23 Lymphocytes % 24.2 % (8-40) 02/18/19 06:23 Monocytes % 5.6 % (3.8-10.2) 02/18/19 06:23 Eosinophils % 1.9 % (0-4.5) D 02/18/19 06:23 Basophils % 0.4 % (0-2.0) 02/18/19 06:23 Nucleated RBC % 0 % (0-0) 02/18/19 06:23
[2019-02-18] MEDS ORDERED: SENNOSIDES/DOCUSATE COMBO (SENNA PLUS) TABLET (UD) PO PRN (22:00)
[2019-02-19] MEDS: ACETAMINOPHEN 325 MG TABLET (FP) PO PRN ×3 (03:52→12:39)
[2019-02-19] MEDS: IBUPROFEN 600 MG TABLET (FP) PO PRN ×3 (03:53→12:39)
[2019-02-19 07:49] VITALS: BP 117/67; PULSE 80; TEMP 98.3
== END 2019-02-19 16:00 | disposition home or self-care (01) | DRG 560 ==
LOC: JLDR 05:30 → J3W 17:08
PROVIDERS: ADMIT Specialist; ATTEND Specialist
PROC: 10E0XZZ Delivery of Products of Conception, External Approach (ICD-10-PCS; principal; 2019-02-17)
PROC: 10907ZC Drainage of Amniotic Fluid, Therapeutic from Products of Conception, Via Natural or Artificial Opening (ICD-10-PCS; 2019-02-17)
DX: O99.824 Streptococcus B carrier state complicating childbirth (principal); Z3A.38 38 weeks gestation of pregnancy; Z37.0 Single live birth
CPT/HCPCS: 36415; 59409; 80048; 85025; 85610; 85730; 86593; 86850; 86900; 86901; 87389

== ENCOUNTER 2021-04-08 09:01 | Emergency (ER) | payer OTHER ==
[2021-04-08 09:08] VITALS: BP 105/71; PULSE 76; TEMP 98; BMI 31.3
[2021-04-08] MEDS ORDERED: SODIUM CHLORIDE 1,000 ML IV STA (10:00)
[2021-04-08] MEDS ORDERED: ONDANSETRON 4 MG/2 ML VIAL IVPUSH ONE (10:00)
[2021-04-08] MEDS ORDERED: ACETAMINOPHEN 1000 MG/100 ML VIAL IVPB ONE (10:01)
[2021-04-08] MEDS ORDERED: ACETAMINOPHEN INJECTION 100 ML IVPB ONE (10:11)
[2021-04-08] MEDS ORDERED: ONDANSETRON 4 MG/2 ML VIAL ONE (10:11)
[2021-04-08 11:38] LABS: URINE APPEARANCE CLEAR; URINE BILIRUBIN NEGATIVE (NEGATIVE); URINE COLOR DK YELLOW; URINE GLUCOSE (UA) NEGATIVE (NEGATIVE); URINE KETONE NEGATIVE (NEGATIVE); URINE LEUK ESTERASE NEGATIVE (NEGATIVE); URINE NITRITE NEGATIVE (NEGATIVE); URINE PROTEIN NEGATIVE (NEGATIVE)
[2021-04-08 11:42] LABS: BASO % 0.6 % (0-2.0); EOS % 1.3 % (0-4.5); HEMATOCRIT 31.7 % (32.4-45.2); HEMOGLOBIN 10.8 GM/dL (10.7-15.3); MCH 28.9 pg (25.7-33.7); MCHC 34.1 g/dl (32.0-36.0); MEAN CELL VOLUME 84.7 fl (80-96); MEAN PLT VOLUME 7.9 fl (7.5-11.1); MONO % 6.6 % (3.8-10.2); NEUT % 62.5 % (42.8-82.8); PLATELET COUNT 231 10^3/uL (134-434); RBC 3.74 M/mm3 (3.60-5.2); RDW 15.8 % (11.6-15.6); WHITE BLOOD COUNT 6.2 K/mm3 (4.0-10.0)
[2021-04-08 11:44] LABS: HCG,QUALITATIVE URINE Negative
[2021-04-08 11:52] LABS: CHLORIDE 109 mmol/L (98-107); SODIUM 141 mmol/L (136-145)
[2021-04-08 11:53] LABS: ALBUMIN 3.4 g/dl (3.4-5.0); ANION GAP 7 MMOL/L (8-16); BLOOD UREA NITROGEN 13.9 mg/dL (7-18); CALCIUM 7.8 mg/dL (8.5-10.1); CO2 25 mmol/L (21-32); GLUCOSE,RANDOM 76 mg/dL (74-106)
[2021-04-08] MEDS ORDERED: MECLIZINE HCL 25 MG TABLET (FP) PO ONE (11:54)
[2021-04-08 11:57] LABS: CREATININE 0.6 mg/dL (0.55-1.3); SGOT/AST 10 U/L (15-37); SGPT/ALT 18 U/L (13-61)
[2021-04-08 11:59] LABS: BILIRUBIN,TOTAL 0.4 mg/dL (0.2-1); TOT PROT 6.3 g/dl (6.4-8.2)
[2021-04-08 12:00] LABS: ALK PHOS 57 U/L (45-117)
[2021-04-08] MEDS ORDERED: MECLIZINE HCL 25 MG TABLET (FP) ONE (12:04)
== END 2021-04-08 12:42 | disposition home or self-care (01) ==
LOC: JER 09:01
PROC: 3E033NZ Introduction of Analgesics, Hypnotics, Sedatives into Peripheral Vein, Percutaneous Approach (ICD-10-PCS; principal; 2021-04-08)
PROC: 3E033GC Introduction of Other Therapeutic Substance into Peripheral Vein, Percutaneous Approach (ICD-10-PCS; 2021-04-08)
PROC: 3E0337Z Introduction of Electrolytic and Water Balance Substance into Peripheral Vein, Percutaneous Approach (ICD-10-PCS; 2021-04-08)
DX: R42 Dizziness and giddiness (principal)
CPT/HCPCS: 36415; 80053; 81003; 84702; 84703; 85025; 87086; 87491; 87591; 93005; 93010; 96361; 96374; 96375; 99284-25; J0131